=== PATIENT | male | born 1965 | race Caucasian/White ===

== ENCOUNTER 2017-02-02 12:11 | Emergency (ER) | payer MEDICAID ==
[2017-02-02] MEDS ORDERED: MVI, Adult with Vitamin K 10 ML, Thiamine 100 MG, Folic Acid 1 MG, Magnesium Sulfate 3 ... IV SCH ×5 (13:00)
[2017-02-02 16:03] VITALS: BP 144/63
--- NOTE | 2017-02-02 16:48 | EDM.PDOC ---
ED HPI LOWER BACK PAIN/INJURY - General Chief Complaint: Back Pain or Injury Stated Complaint: BACK PAIN Time Seen by Provider: 02/02/17 12:38 Source: Reports: Patient History Limitations: Reports: No limitations, Intoxication - History of Present Illness INITIAL COMMENTS - FREE TEXT/NARRATIVE: History of present illness: [Patient is an alcoholic and fell asleep on a cement floor last night with the intention of sleeping on a cement floor because of some underlying mid back pain that he was having. Because of his alcohol he did not shift his weight and so comes in now with a large subcutaneous hematoma midline of his thoracic spine complaining of pain. He smells strongly of alcohol] Review of systems: As per history of present illness and below otherwise all systems reviewed and negative. Past medical history: As per history of present illness and as reviewed below otherwise noncontributory. Surgical history: As per history of present illness and as reviewed below otherwise noncontributory. Social history: History of alcohol abuse and use Family history: As per history of present illness and as reviewed below otherwise noncontributory. Physical exam: HEENT: Atraumatic, normocephalic, pupils reactive, negative for conjunctival pallor or scleral icterus, mucous membranes moist, throat clear, neck supple, nontender, trachea midline. Smells strongly of alcohol but is able to carry on meaningful conversation Lungs: Clear to auscultation, breath sounds equal bilaterally, chest nontender. Heart: S1S2, regular, negative for clicks, rubs, or JVD. Abdomen: Soft, nondistended, nontender. Negative for masses or hepatosplenomegaly. Negative for costovertebral tenderness. Pelvis: Stable nontender. Genitourinary: Deferred. Rectal: Deferred. Back: He has a simultaneous hematoma midline of the thoracic spine that is about 10 cm x 5 cm. It is tender to touch Extremities: Atraumatic, negative for cords or calf pain. Neurovascular unremarkable. Neuro: Awake, alert, oriented. Cranial nerves II through XII unremarkable. Cerebellum unremarkable. Motor and sensory unremarkable throughout. He was slightly tremulous Diagnostics: [X-rays of the thoracic spine reveal no acute fractures are appreciating. CBC metabolic panel and UA were obtained and a minor abnormalities were seen that were consistent with a diagnosis of chronic alcoholism. ] Therapeutics: [He received a banana bag] Impression: [Subcutaneous hematoma of the thoracic spine Acute intoxication and chronic alcoholic] Plan: [There is a bed available at [facility] and he will be sent there for help] Definitive disposition and diagnosis as appropriate pending reevaluation and review of above. - Related Data Allergies/ADRs: Allergies Allergy/AdvReac Type Severity Reaction Status Date / Time No Known Allergies Allergy Verified 02/16/14 15:33 Home Meds: Home Meds Arginine [l-Arginine] 500 mg PO TID 02/16/14 [History] Melatonin 1 tab PO BEDTIME PRN 02/02/17 [History] Metoprolol Succinate 1 tab PO DAILY 02/02/17 [History] Past Medical History Cardiovascular History: Reports: Hypertension Musculoskeletal History: Reports: Fracture Social & Family History - Tobacco Use Smoking Status *Q: Current Some Day Smoker Years of Tobacco use: 30 Packs/Tins Daily: 0.5 - Caffeine Use Caffeine Use: Reports: None - Alcohol Use Days Per Week of Alcohol Use: 7 Number of Drinks Per Day: 10 Total Drinks Per Week: 70 Date of Last Drink: 02/02/17 Time of Last Drink: 10:00 - Recreational Drug Use Recreational Drug Use: Yes Recreational Drug Type: Reports: Marijuana/Hashish Recreational Drug Use Frequency: Not Used In Over 6 Months ED ROS GENERAL - Review of Systems Review Of Systems: ROS reveals no pertinent complaints other than HPI. ED EXAM,LOWER BACK PAIN/INJURY - Physical Exam Exam: See Below Course - Vital Signs Last Recorded V/S: Last Vital Signs Temp 36.6 C 02/02/17 15:08 Pulse 69 02/02/17 16:02 Resp 20 02/02/17 16:02 BP 144/63 H 02/02/17 16:02 Pulse Ox 94 L 02/02/17 16:02 - Orders/Labs/Meds Orders: Active Orders 24 hr Category Date Time Status Thoracic Spine 2V [CR] Stat Exams 02/02/17 12:47 Taken MVI, Adult with Vitamin K [Infuvite Adult] 10 ml Med 02/02/17 13:00 Active Thiamine [Vitamin B-1] 100 mg Folic Acid 1 mg Magnesium Sulfate [Magnesium Sulfate 50%] 3 gm Sodium Chloride 0.9% [Normal Saline] 1,000 ml IV ASDIRECTED Medication Orders Multivitamins/Minerals 10 ml/Thiamine HCl 100 mg/ Folic Acid 1 mg/ Magnesium Sulfate 3 gm/ Sodium Chloride 1,017.2 mls @ 999 mls/hr IV ASDIRECTED JENSEN Last Admin: 02/02/17 13:38 Dose: 999 mls/hr Labs: Laboratory Tests 02/02/17 02/02/17 02/02/17 Range/Units 12:48 12:48 12:49 WBC 4.9 (4.5-11.0) K/uL RBC 3.93 L (4.30-5.90) M/uL Hgb 13.4 (12.0-15.0) g/dL Hct 39.0 L (40.0-54.0) % MCV 99 H (80-98) fL MCH 34 H (27-31) pg MCHC 34 (32-36) % Plt Count 105 L (150-400) K/uL Neut % (Auto) 63 (36-66) % Lymph % (Auto) 24 (24-44) % Denali % (Auto) 12 H (2-6) % Eos % (Auto) 0 L (2-4) % Baso % (Auto) 1 (0-1) % Sodium 141 (140-148) mmol/L Potassium 3.6 (3.6-5.2) mmol/L Chloride 98 L (100-108) mmol/L Carbon Dioxide 30 (21-32) mmol/L Anion Gap 16.6 H (5.0-14.0) mmol/L BUN 8 (7-18) mg/dL Creatinine 0.7 L (0.8-1.3) mg/dL Est Cr Clr Drug Dosing 113.93 mL/min Estimated GFR (MDRD) > 60 (>60) Glucose 129 H (74-106) mg/dL Calcium 8.4 L (8.5-10.1) mg/dL Total Bilirubin 1.3 H (0.2-1.0) mg/dL AST 247 H (15-37) U/L ALT 90 H (12-78) U/L Alkaline Phosphatase 89 (46-116) U/L Creatine Kinase 234 (39-308) U/L Total Protein 8.5 H (6.4-8.2) g/dL Albumin 3.9 (3.4-5.0) g/dL Globulin 4.6 H (2.3-3.5) g/dL Albumin/Globulin Ratio 0.9 L (1.2-2.2) Ethyl Alcohol 400 mg/dL 02/02/17 Range/Units 15:51 WBC (4.5-11.0) K/uL RBC (4.30-5.90) M/uL Hgb (12.0-15.0) g/dL Hct (40.0-54.0) % MCV (80-98) fL MCH (27-31) pg MCHC (32-36) % Plt Count (150-400) K/uL Neut % (Auto) (36-66) % Lymph % (Auto) (24-44) % Denali % (Auto) (2-6) % Eos % (Auto) (2-4) % Baso % (Auto) (0-1) % Sodium (140-148) mmol/L Potassium (3.6-5.2) mmol/L Chloride (100-108) mmol/L Carbon Dioxide (21-32) mmol/L Anion Gap (5.0-14.0) mmol/L BUN (7-18) mg/dL Creatinine (0.8-1.3) mg/dL Est Cr Clr Drug Dosing mL/min Estimated GFR (MDRD) (>60) Glucose (74-106) mg/dL Calcium (8.5-10.1) mg/dL Total Bilirubin (0.2-1.0) mg/dL AST (15-37) U/L ALT (12-78) U/L Alkaline Phosphatase (46-116) U/L Creatine Kinase (39-308) U/L Total Protein (6.4-8.2) g/dL Albumin (3.4-5.0) g/dL Globulin (2.3-3.5) g/dL Albumin/Globulin Ratio (1.2-2.2) Ethyl Alcohol 341 mg/dL Meds: Medications Generic Name Dose Route Start Last Admin Trade Name Freq PRN Reason Stop Dose Admin Multivitamins/Minerals 10 ml/ 1,017.2 mls @ 999 mls/hr 02/02/17 13:00 13:38 Thiamine HCl 100 mg/ Folic IV 999 mls/hr Acid 1 mg/ Magnesium Sulfate 3 ASDIRECTED JENSEN Administration gm/ Sodium Chloride Departure - Departure Time of Disposition: 16:47 (I was unable to find a diagnosis of a subcutaneous hematoma of the mid thoracic back but that is what he actually has) Disposition: Home, Self-Care 01 Condition: fair Clinical Impression: Hematoma, Alcohol abuse Traumatic hematoma of lower back Qualifiers: Encounter type: initial encounter Qualified Code(s): S30.0XXA - Contusion of lower back and pelvis, initial encounter Forms: ED Department Discharge Additional Instructions: Please try to obtain an operative candidate from a manner and stop drinking and try to figure out better ways to cope - My Orders Last 24 Hours: My Active Orders 02/02/17 12:47 Thoracic Spine 2V [CR] Stat 02/02/17 13:00 MVI, Adult with Vitamin K [Infuvite Adult] 10 ml Thiamine [Vitamin B-1] 100 mg Folic Acid 1 mg Magnesium Sulfate [Magnesium Sulfate 50%] 3 gm Sodium Chloride 0.9% [Normal Saline] 1,000 ml IV ASDIRECTED - Assessment/Plan Last 24 Hours: My Active Orders 02/02/17 12:47 Thoracic Spine 2V [CR] Stat 02/02/17 13:00 MVI, Adult with Vitamin K [Infuvite Adult] 10 ml Thiamine [Vitamin B-1] 100 mg Folic Acid 1 mg Magnesium Sulfate [Magnesium Sulfate 50%] 3 gm Sodium Chloride 0.9% [Normal Saline] 1,000 ml IV ASDIRECTED
--- NOTE | 2017-02-04 08:51 | CR ---
Thoracic Spine 2V INDICATION: mid back pain FINDINGS: Mild diffuse disc desiccation and minimal endplate hypertrophic changes. No acute fracture or cortical destruction.
== END 2017-02-02 17:10 | disposition home or self-care (01) ==
LOC: JP.ED 12:11
DX: S30.0XXA Contusion of lower back and pelvis, initial encounter (principal); F10.120 Alcohol abuse with intoxication, uncomplicated; I10 Essential (primary) hypertension; F17.210 Nicotine dependence, cigarettes, uncomplicated; Z79.899 Other long term (current) drug therapy; W19.XXXA Unspecified fall, initial encounter
CPT/HCPCS: 36415; 72070; 80053; 82550; 85025; 96365; 96366; 99284; G0480; J3411; J3475; J7040; J3490

== ENCOUNTER 2017-02-03 09:02 | Inpatient (IN) | payer MEDICAID ==
[2017-02-03] MEDS ORDERED: LORazepam 1 MG Tab PO ONE (11:12)
[2017-02-03] MEDS ORDERED: Sodium Chloride 0.9% 1,000 ML IV SCH (13:30)
--- NOTE | 2017-02-03 13:32 | EDM.PDOC ---
ED HPI ALTERED MENTAL STATUS - General Chief Complaint: Drug or Alcohol Abuse Stated Complaint: [facility] Time Seen by Provider: 02/03/17 10:36 Source: Reports: Patient History Limitations: Reports: No limitations - History of Present Illness INITIAL COMMENTS - FREE TEXT/NARRATIVE: History of present illness: [This is a gentleman I saw yesterday and sent supine manner. They called me this morning and stated that they are unable to take care of him and as he requires one-on-one care and they're unable to provide one-on-one care. He is 30 mg of Valium and 5 mg of Ativan since being sent over there to try to control his withdrawal symptoms from alcohol. He is very unsteady on his feet and they don't have staff to manage him.] Review of systems: As per history of present illness and below otherwise all systems reviewed and negative. Past medical history: As per history of present illness and as reviewed below otherwise noncontributory. Surgical history: As per history of present illness and as reviewed below otherwise noncontributory. Social history: patient has history of alcohol Family history: As per history of present illness and as reviewed below otherwise noncontributory. Physical exam: HEENT: Atraumatic, normocephalic, pupils reactive, negative for conjunctival pallor or scleral icterus, mucous membranes moist, throat clear, neck supple, nontender, trachea midline. Lungs: Clear to auscultation, breath sounds equal bilaterally, chest nontender. Heart: S1S2, regular, negative for clicks, rubs, or JVD. Abdomen: Soft, nondistended, nontender. Negative for masses or hepatosplenomegaly. Negative for costovertebral tenderness. Pelvis: Stable nontender. Genitourinary: Deferred. Rectal: Deferred. BACK: There is subcutaneous hematoma that was seen on his back yesterday is now softened up and he just has a big bruise present the middle of his back Extremities: Atraumatic, negative for cords or calf pain. Neurovascular unremarkable. Neuro: Awake, alert, oriented. Cranial nerves II through XII unremarkable. He is quite tremulous and requires assistance of 2 people to get him out of bed and put him on a commode or to ambulate him. Diagnostics: [CBC and complete metabolic panel showed multiple small abnormalities consistent with his alcoholism see that report for details] Therapeutics: [] Impression: [Acute alcohol withdrawal] Plan: [Dr. Bryant is here to admit him] Definitive disposition and diagnosis as appropriate pending reevaluation and review of above. - Related Data Allergies/ADRs: Allergies No Known Allergies Allergy (Verified 02/03/17 09:27) Home Meds: Home Meds Arginine [l-Arginine] 500 mg PO TID 02/16/14 [History] Melatonin 1 tab PO BEDTIME PRN 02/02/17 [History] Metoprolol Succinate 1 tab PO DAILY 02/02/17 [History] Past Medical History Cardiovascular History: Reports: Hypertension Musculoskeletal History: Reports: Fracture Psychiatric History: Reports: Addiction - Past Surgical History Musculoskeletal Surgical History: Reports: Other (see below) Other Musculoskeletal Surgeries/Procedures:: knee fracture surgery. Social & Family History - Tobacco Use Smoking Status *Q: Current Some Day Smoker Years of Tobacco use: 30 Packs/Tins Daily: 0.5 - Caffeine Use Caffeine Use: Reports: None - Alcohol Use Days Per Week of Alcohol Use: 7 Number of Drinks Per Day: 10 Total Drinks Per Week: 70 - Recreational Drug Use Recreational Drug Use: Yes Recreational Drug Type: Reports: Marijuana/Hashish Recreational Drug Use Frequency: Not Used In Over 6 Months ED ROS GENERAL - Review of Systems Review Of Systems: ROS reveals no pertinent complaints other than HPI. - Physical Exam Exam: See Below Course - Vital Signs Last Recorded V/S: Last Vital Signs Temp 37.4 C 02/03/17 09:19 Pulse 76 02/03/17 13:20 Resp 16 02/03/17 13:20 BP 142/83 H 02/03/17 13:20 Pulse Ox 93 L 02/03/17 13:20 - Orders/Labs/Meds Labs: Laboratory Tests 02/03/17 02/03/17 02/03/17 Range/Units 10:46 10:46 10:46 WBC 3.9 L (4.5-11.0) K/uL RBC 3.17 L (4.30-5.90) M/uL Hgb 10.9 L D (12.0-15.0) g/dL Hct 32.1 L (40.0-54.0) % MCV 101 H (80-98) fL MCH 34 H (27-31) pg MCHC 34 (32-36) % Plt Count 71 L (150-400) K/uL Neut % (Auto) 64 (36-66) % Lymph % (Auto) 14 L (24-44) % Mcleod % (Auto) 21 H (2-6) % Eos % (Auto) 1 L (2-4) % Baso % (Auto) 1 (0-1) % Sodium 139 L (140-148) mmol/L Potassium 3.7 (3.6-5.2) mmol/L Chloride 98 L (100-108) mmol/L Carbon Dioxide 30 (21-32) mmol/L Anion Gap 14.7 H (5.0-14.0) mmol/L BUN 10 (7-18) mg/dL Creatinine 0.6 L (0.8-1.3) mg/dL Est Cr Clr Drug Dosing 133.59 mL/min Estimated GFR (MDRD) > 60 (>60) Glucose 107 H (74-106) mg/dL Lactic Acid 1.1 (0.4-2.0) mmol/L Calcium 8.4 L (8.5-10.1) mg/dL Total Bilirubin 1.9 H (0.2-1.0) mg/dL AST 171 H (15-37) U/L ALT 68 (12-78) U/L Alkaline Phosphatase 71 (46-116) U/L Total Protein 7.5 (6.4-8.2) g/dL Albumin 3.7 (3.4-5.0) g/dL Globulin 3.8 H (2.3-3.5) g/dL Albumin/Globulin Ratio 1.0 L (1.2-2.2) Ethyl Alcohol mg/dL 02/03/17 Range/Units 10:46 WBC (4.5-11.0) K/uL RBC (4.30-5.90) M/uL Hgb (12.0-15.0) g/dL Hct (40.0-54.0) % MCV (80-98) fL MCH (27-31) pg MCHC (32-36) % Plt Count (150-400) K/uL Neut % (Auto) (36-66) % Lymph % (Auto) (24-44) % Mcleod % (Auto) (2-6) % Eos % (Auto) (2-4) % Baso % (Auto) (0-1) % Sodium (140-148) mmol/L Potassium (3.6-5.2) mmol/L Chloride (100-108) mmol/L Carbon Dioxide (21-32) mmol/L Anion Gap (5.0-14.0) mmol/L BUN (7-18) mg/dL Creatinine (0.8-1.3) mg/dL Est Cr Clr Drug Dosing mL/min Estimated GFR (MDRD) (>60) Glucose (74-106) mg/dL Lactic Acid (0.4-2.0) mmol/L Calcium (8.5-10.1) mg/dL Total Bilirubin (0.2-1.0) mg/dL AST (15-37) U/L ALT (12-78) U/L Alkaline Phosphatase (46-116) U/L Total Protein (6.4-8.2) g/dL Albumin (3.4-5.0) g/dL Globulin (2.3-3.5) g/dL Albumin/Globulin Ratio (1.2-2.2) Ethyl Alcohol < 3 mg/dL Meds: Medications Discontinued Medications Generic Name Dose Route Start Last Admin Trade Name Freq PRN Reason Stop Dose Admin Lorazepam 1 mg 02/03/17 11:12 02/03/17 11:17 Ativan PO 02/03/17 11:13 1 mg ONETIME ONE Administration Departure - Departure Time of Disposition: 13:31 Disposition: Admitted As Inpatient 68 Condition: fair Clinical Impression: Alcohol withdrawal syndrome Qualifiers: Complication of substance-induced condition: with unspecified complication Qualified Code(s): F10.239 - Alcohol dependence with withdrawal, unspecified Forms: ED Department Discharge
--- NOTE | 2017-02-03 13:51 | PCM.HP ---
H&P History of Present Illness - General Date of Service: 02/03/17 Admit Problem/Dx: Admission Diagnosis/Problem Admission Diagnosis/Problem Alcohol withdrawal delirium He has been drinking a considerable amount of alcohol and was laying on a cement floor intoxicated and had a large hematoma on his back when he came in today before admission to [facility]. He comes in now and the lesion is smaller but still present. While at [facility] we were unable to sedate him enough and he was unable to ambulate and was unsafe to remain at the [facility] facility as his delirium tremors were progressively getting worse. Source of Information: Patient, EMS History Limitations: Reports: Altered mental status - History of Present Illness Associated Symptoms: Reports: weakness Back Pain Score (Numeric/FACES): 6 - Related Data Allergies/Adverse Reactions: Allergies Allergy/AdvReac Type Severity Reaction Status Date / Time No Known Allergies Allergy Verified 02/03/17 09:27 Home Medications: Home Meds Arginine [l-Arginine] 500 mg PO TID 02/16/14 [History] Melatonin 1 tab PO BEDTIME PRN 02/02/17 [History] Metoprolol Succinate 1 tab PO DAILY 02/02/17 [History] Past Medical History Cardiovascular History: Reports: Hypertension Musculoskeletal History: Reports: Fracture Psychiatric History: Reports: Addiction - Past Surgical History Musculoskeletal Surgical History: Reports: Other (see below) Other Musculoskeletal Surgeries/Procedures:: knee fracture surgery. Social & Family History - Tobacco Use Smoking Status *Q: Current Some Day Smoker Years of Tobacco use: 30 Packs/Tins Daily: 0.5 - Caffeine Use Caffeine Use: Reports: None - Alcohol Use Days Per Week of Alcohol Use: 7 Number of Drinks Per Day: 10 Total Drinks Per Week: 70 - Recreational Drug Use Recreational Drug Use: Yes Recreational Drug Type: Reports: Marijuana/Hashish Recreational Drug Use Frequency: Not Used In Over 6 Months H&P Review of Systems - Review of Systems: Review Of Systems: See Below General: Reports: weakness, decreased appetite Pulmonary: Reports: No Symptoms Cardiovascular: Reports: no symptoms Gastrointestinal: Reports: Constipation, Diarrhea Genitourinary: Reports: no symptoms Musculoskeletal: Reports: back pain Skin: Reports: rash Psychiatric: Reports: anxiety Neurological: Reports: Trouble Speaking, Difficulty Walking, Weakness, Gait Disturbance Hematologic/Lymphatic: Reports: anemia, easy bruising Immunologic: Reports: no symptoms Exam - Exam Exam: See Below - Vital Signs Vital Signs: Last Vital Signs Temp 99.3 F 02/03/17 09:19 Pulse 76 02/03/17 13:20 Resp 16 02/03/17 13:20 BP 142/83 H 02/03/17 13:20 Pulse Ox 93 L 02/03/17 13:20 Weight: 184 lb 15.485 oz - Exam General: oriented, cooperative, mild distress HEENT: PERRLA, Hearing intact, Mucosa moist & pink, Nares patent, Normal nasal septum, Posterior pharynx clear, Conjunctiva clear, EOMI, EACs clear, TMs clear Neck: supple, trachea midline, 2 Lungs: Clear to auscultation, Normal respiratory effort Cardiovascular: regular rate, regular rhythm Abdomen: distention Back Exam: other (Rash noted on the mid back area from apparently planning on cement.) Peripheral Pulses: 1+: radial (L), radial (R) Skin: warm, dry Neurological: cranial nerves intact, reflexes equal bilateral Neuro Extensive - Mental Status: oriented x3 Neuro Extensive - Motor, Sensory, Reflexes: CN II-XII intact, motor/sensory deficits, tremor Psychiatric: normal mood - Patient Data Lab Results last 24 hrs: Laboratory Results - last 24 hr 02/03/17 02/03/17 02/03/17 Range/Units 10:46 10:46 10:46 WBC 3.9 L (4.5-11.0) K/uL RBC 3.17 L (4.30-5.90) M/uL Hgb 10.9 L D (12.0-15.0) g/dL Hct 32.1 L (40.0-54.0) % MCV 101 H (80-98) fL MCH 34 H (27-31) pg MCHC 34 (32-36) % Plt Count 71 L (150-400) K/uL Neut % (Auto) 64 (36-66) % Lymph % (Auto) 14 L (24-44) % Andrew % (Auto) 21 H (2-6) % Eos % (Auto) 1 L (2-4) % Baso % (Auto) 1 (0-1) % Sodium 139 L (140-148) mmol/L Potassium 3.7 (3.6-5.2) mmol/L Chloride 98 L (100-108) mmol/L Carbon Dioxide 30 (21-32) mmol/L Anion Gap 14.7 H (5.0-14.0) mmol/L BUN 10 (7-18) mg/dL Creatinine 0.6 L (0.8-1.3) mg/dL Est Cr Clr Drug Dosing 133.59 mL/min Estimated GFR (MDRD) > 60 (>60) Glucose 107 H (74-106) mg/dL Lactic Acid 1.1 (0.4-2.0) mmol/L Calcium 8.4 L (8.5-10.1) mg/dL Total Bilirubin 1.9 H (0.2-1.0) mg/dL AST 171 H (15-37) U/L ALT 68 (12-78) U/L Alkaline Phosphatase 71 (46-116) U/L Total Protein 7.5 (6.4-8.2) g/dL Albumin 3.7 (3.4-5.0) g/dL Globulin 3.8 H (2.3-3.5) g/dL Albumin/Globulin Ratio 1.0 L (1.2-2.2) Ethyl Alcohol mg/dL 02/03/17 Range/Units 10:46 WBC (4.5-11.0) K/uL RBC (4.30-5.90) M/uL Hgb (12.0-15.0) g/dL Hct (40.0-54.0) % MCV (80-98) fL MCH (27-31) pg MCHC (32-36) % Plt Count (150-400) K/uL Neut % (Auto) (36-66) % Lymph % (Auto) (24-44) % Andrew % (Auto) (2-6) % Eos % (Auto) (2-4) % Baso % (Auto) (0-1) % Sodium (140-148) mmol/L Potassium (3.6-5.2) mmol/L Chloride (100-108) mmol/L Carbon Dioxide (21-32) mmol/L Anion Gap (5.0-14.0) mmol/L BUN (7-18) mg/dL Creatinine (0.8-1.3) mg/dL Est Cr Clr Drug Dosing mL/min Estimated GFR (MDRD) (>60) Glucose (74-106) mg/dL Lactic Acid (0.4-2.0) mmol/L Calcium (8.5-10.1) mg/dL Total Bilirubin (0.2-1.0) mg/dL AST (15-37) U/L ALT (12-78) U/L Alkaline Phosphatase (46-116) U/L Total Protein (6.4-8.2) g/dL Albumin (3.4-5.0) g/dL Globulin (2.3-3.5) g/dL Albumin/Globulin Ratio (1.2-2.2) Ethyl Alcohol < 3 mg/dL Result Diagrams: 02/04/17 05:11 02/04/17 04:47 *Q Meaningful Use (ADM) - VTE *Q VTE Criteria *Q: - Stroke *Q Stroke Criteria *Q: - AMI *Q AMI Criteria *Q: Problem List Initiated/Reviewed/Updated: Yes Orders Last 24hrs: Active Orders 24 hr Category Date Time Status Patient Status [ADT] Routine ADT 02/03/17 13:29 Ordered Bedrest Bathroom Privileges [RC] ASDIRECTED Care 02/03/17 13:29 Ordered Height and Weight [RC] DAILY Care 02/03/17 13:29 Ordered Intake and Output [RC] QSHIFT Care 02/03/17 13:34 Ordered May Shower [RC] ASDIRECTED Care 02/03/17 13:29 Ordered Oxygen Therapy [RC] PRN Care 02/03/17 13:29 Ordered Up With Assistance [RC] ASDIRECTED Care 02/03/17 13:29 Ordered Up to Chair [RC] QID Care 02/03/17 13:29 Ordered VTE/DVT Education [RC] Per Unit Routine Care 02/03/17 13:29 Ordered Vital Signs [RC] Q4H Care 02/03/17 13:29 Ordered Regular Diet [DIET] Diet 02/03/17 Dinner Ordered BASIC METABOLIC PANEL,BMP [CHEM] Routine Lab 02/04/17 05:11 Ordered CBC W/O DIFF,HEMOGRAM [HEME] Routine Lab 02/04/17 05:11 Ordered MAGNESIUM [CHEM] AM Lab 02/04/17 05:11 Ordered Metoprolol Succinate [Metoprolol Succinate] Med 02/04/17 09:00 Ordered 1 tab PO DAILY Sodium Chloride 0.9% @ 125 MLS/HR (1000ml) Med 02/03/17 13:30 Ordered Sodium Chloride 0.9% [Normal Saline] 1,000 ml IV ASDIRECTED Thiamine [Vitamin B-1] Med 02/03/17 21:00 Ordered 100 mg PO BID Resuscitation Status Routine Resus Stat 02/03/17 13:29 Ordered Medication Orders Sodium Chloride (Normal Saline) 1,000 mls @ 125 mls/hr IV ASDIRECTED JENSEN Non-Formulary Medication (Metoprolol Succinate [Metoprolol Succinate]) 1 tab PO DAILY [facility] Thiamine HCl (Vitamin B-1) 100 mg PO BID [facility] Assessment/Plan Comment:: Assessment/plan: #1. Alcoholism with delirium tremors. He's been consuming a large amount of alcohol and will need close observation in the ICU #2. Hypertension..Will need to monitor his blood pressure closely as he give medications and will monitor his blood work closely. #3. Obesity
[2017-02-03] MEDS ORDERED: Diazepam 5 MG Tab PO PRN (14:10)
[2017-02-03] MEDS: Dextrose 5%-0.9% NaCl 1,000 ML IV SCH ×2 (15:15→22:35)
[2017-02-03] MEDS: Thiamine 100 MG Tab PO SCH ×2 (16:21→21:04)
[2017-02-03] MEDS: Acetaminophen 325 MG Tab PO PRN (19:49)
[2017-02-03] MEDS ORDERED: LORazepam 2 MG/ML MDV ONE (23:49)
[2017-02-03] MEDS: LORazepam 2 MG/ML MDV IVPUSH PRN (23:50)
[2017-02-04] MEDS: LORazepam 2 MG/ML MDV IVPUSH PRN ×16 (00:18→22:28)
[2017-02-04] MEDS: Haloperidol Lactate 5 MG/ML SDV IVPUSH PRN ×6 (02:44→21:11)
[2017-02-04] MEDS: Dextrose 5%-0.9% NaCl 1,000 ML IV SCH ×2 (07:05→16:59)
[2017-02-04] MEDS: Thiamine 100 MG Tab PO SCH ×2 (10:21→21:09)
[2017-02-04] MEDS: Folic Acid 1 MG Tab PO SCH (10:21)
[2017-02-04] MEDS: Metoprolol Succinate 50 MG Tab.ER PO SCH (10:21)
[2017-02-04] MEDS: Multivitamins with Iron/Calcium/Folic Acid/Minerals Tab PO SCH (10:21)
[2017-02-04] MEDS: Potassium Chloride 20 MEQ, Lidocaine 1% 2 ML in Sodium Chloride 0.9% 100 ML IV SCH ×2 (10:22→13:37)
[2017-02-04] MEDS: Magnesium Sulfate/Water 2 GM in Premix Bag 1 BAG IV SCH ×3 (10:33→22:28)
--- NOTE | 2017-02-04 14:27 | PCM.PN ---
- General Info Date of Service: 02/04/17 Functional Status: Reports: pain controlled - Review of Systems General: Reports: Weakness, Fatigue HEENT: Reports: no symptoms Pulmonary: Reports: no symptoms Cardiovascular: Reports: No Symptoms Gastrointestinal: Reports: No symptoms Genitourinary: Reports: no symptoms Musculoskeletal: Reports: no symptoms Skin: Reports: no symptoms Neurological: Reports: No Symptoms Psychiatric: Reports: hallucinations - Patient Data Vitals - most recent: Last Vital Signs Temp 99 F 02/04/17 13:00 Pulse 93 02/04/17 12:00 Resp 24 H 02/04/17 13:00 BP 129/99 H 02/04/17 13:00 Pulse Ox 98 02/04/17 13:00 Weight - most recent: 175 lb 11.335 oz I&O - last 24 hours: Intake & Output 02/03/17 02/04/17 02/04/17 22:59 06:59 14:59 Intake Total 847 1342 112 Output Total 600 300 Balance 247 1342 -188 Lab Results last 24 hrs: Laboratory Results - last 24 hr 02/04/17 02/04/17 Range/Units 04:47 05:11 WBC 4.8 (4.5-11.0) K/uL RBC 3.10 L (4.30-5.90) M/uL Hgb 10.6 L (12.0-15.0) g/dL Hct 31.4 L (40.0-54.0) % MCV 101 H (80-98) fL MCH 34 H (27-31) pg MCHC 34 (32-36) % Plt Count 75 L (150-400) K/uL Sodium 138 L (140-148) mmol/L Potassium 3.2 L (3.6-5.2) mmol/L Chloride 99 L (100-108) mmol/L Carbon Dioxide 27 (21-32) mmol/L Anion Gap 15.2 H (5.0-14.0) mmol/L BUN 5 L (7-18) mg/dL Creatinine 0.6 L (0.8-1.3) mg/dL Est Cr Clr Drug Dosing 142.50 mL/min Estimated GFR (MDRD) > 60 (>60) Glucose 145 H (74-106) mg/dL Calcium 8.3 L (8.5-10.1) mg/dL Magnesium 1.3 L (1.8-2.4) mg/dL Med Orders - Current: Current Medications Acetaminophen (Tylenol) 650 mg PO Q4H PRN PRN Reason: Pain Last Admin: 02/03/17 19:49 Dose: 650 mg Diazepam (Valium) 0 mg IVPUSH ASDIRECTED PRN; Protocol PRN Reason: ETOH WITHDRAWAL Last Admin: 02/03/17 23:32 Dose: 20 mg Diazepam (Valium.) 0 mg PO ASDIRECTED PRN; Protocol PRN Reason: ETOH WITHDRAWAL Last Admin: 02/03/17 16:57 Dose: 10 mg Folic Acid (Folic Acid) 1 mg PO DAILY [facility] Last Admin: 02/04/17 10:21 Dose: 1 mg Haloperidol Lactate (Haldol) 5 mg IVPUSH Q1H PRN PRN Reason: Agitation Last Admin: 02/04/17 13:45 Dose: 5 mg Dextrose/Sodium Chloride (Dextrose 5%-Normal Saline) 1,000 mls @ 125 mls/hr IV ASDIRECTED [facility] Last Admin: 02/04/17 07:05 Dose: 125 mls/hr Magnesium Sulfate 2 gm/ Premix 50 mls @ 25 mls/hr IV Q6H [facility] Stop: 02/04/17 23:59 Last Admin: 02/04/17 10:33 Dose: 25 mls/hr Lorazepam (Ativan) 0.5 - 4 mg IVPUSH Q30M PRN; Protocol PRN Reason: Anxiety Last Admin: 02/04/17 13:36 Dose: 2 mg Metoprolol Succinate (Toprol Xl) 200 mg PO DAILY [facility] Last Admin: 02/04/17 10:21 Dose: 200 mg Multivitamins/Minerals (Thera M Plus) 1 tab PO DAILY [facility] Last Admin: 02/04/17 10:21 Dose: 1 tab Thiamine HCl (Vitamin B-1) 100 mg PO BID [facility] Stop: 02/09/17 21:01 Last Admin: 02/04/17 10:21 Dose: 100 mg Discontinued Medications Sodium Chloride (Normal Saline) 1,000 mls @ 125 mls/hr IV ASDIRECTED [facility] Potassium Chloride 20 meq/Lidocaine HCl 2 ml/ Sodium Chloride 112 mls @ 56 mls/ hr IV Q2H [facility] Stop: 02/04/17 13:59 Last Admin: 02/04/17 13:37 Dose: 56 mls/hr Lorazepam (Ativan) 1 mg PO ONETIME ONE Stop: 02/03/17 11:13 Last Admin: 02/03/17 11:17 Dose: 1 mg Lorazepam (Ativan) Confirm Administered Dose 4 mg .ROUTE .STK-MED ONE Stop: 02/03/17 23:50 Last Admin: 02/04/17 00:08 Dose: Not Given - Exam General: alert, oriented HEENT: Pupils equal, Pupils reactive, EOMI, Mucous membr. moist/pink Lungs: Clear to auscultation, Normal respiratory effort Cardiovascular: Regular Rate, Regular Rhythm Abdomen: bowel sounds present, soft, no tenderness, no distension Back Exam: normal inspection, full range of motion Extremities: no edema Peripheral Pulses: 1+: radial (L), radial (R) Psy/Mental Status: withdrawal symptoms - Problem List Review Problem List Initiated/Reviewed/Updated: Yes - My Orders Last 24 Hours: My Active Orders 02/03/17 19:41 Acetaminophen [Tylenol] 650 mg PO Q4H PRN 02/03/17 23:56 LORazepam [Ativan] 0.5 - 4 mg IVPUSH Q30M PRN 02/04/17 02:20 Haloperidol Lactate [Haldol] 5 mg IVPUSH Q1H PRN 02/04/17 10:00 Magnesium Sulfate/Water [Magnesium Sulfate 2 GM in Water 50 ML] 2 gm Premix Bag 1 bag IV Q6H 02/05/17 05:00 CBC W/O DIFF,HEMOGRAM [HEME] Routine COMPREHENSIVE METABOLIC PN,CMP [CHEM] Routine LIPASE [CHEM] Routine - Plan Plan:: Assessment/plan: #1. Alcoholism with delirium tremors. He is having difficult time coming off alcohol and had to use Haldol as well as Valium and Ativan in the past as well. #2. Hypertension. His blood pressure is stable control at present time. #3. Obesity he is in the ICU and unconscious as he is heavily sedated in order to get him off the alcohol. Certainly he is obese and needs to change his diet and exercise particularly stoping his alcohol intake.
--- NOTE | 2017-02-04 18:24 | PCM.PN ---
- General Info Date of Service: 02/05/17 Admission Dx/Problem (Free Text): He continues to have significant withdrawal delirium tremors and unable to ambulate. - Review of Systems General: Reports: Weakness, Fatigue, Appetite HEENT: Reports: visual changes Pulmonary: Reports: no symptoms Cardiovascular: Reports: No Symptoms Gastrointestinal: Reports: Difficulty swallowing, Nausea Genitourinary: Reports: no symptoms Musculoskeletal: Reports: no symptoms Skin: Reports: diaphoresis Psychiatric: Reports: confusion, agitation - Patient Data Vitals - most recent: Last Vital Signs Temp 99.6 F 02/04/17 18:00 Pulse 108 H 02/04/17 16:00 Resp 21 H 02/04/17 18:00 BP 146/102 H 02/04/17 18:00 Pulse Ox 99 02/04/17 18:00 Weight - most recent: 175 lb 11.335 oz I&O - last 24 hours: Intake & Output 02/04/17 02/04/17 02/04/17 06:59 14:59 22:59 Intake Total 1342 112 Output Total 300 Balance 1342 -188 Lab Results last 24 hrs: Laboratory Results - last 24 hr 02/04/17 02/04/17 Range/Units 04:47 05:11 WBC 4.8 (4.5-11.0) K/uL RBC 3.10 L (4.30-5.90) M/uL Hgb 10.6 L (12.0-15.0) g/dL Hct 31.4 L (40.0-54.0) % MCV 101 H (80-98) fL MCH 34 H (27-31) pg MCHC 34 (32-36) % Plt Count 75 L (150-400) K/uL Sodium 138 L (140-148) mmol/L Potassium 3.2 L (3.6-5.2) mmol/L Chloride 99 L (100-108) mmol/L Carbon Dioxide 27 (21-32) mmol/L Anion Gap 15.2 H (5.0-14.0) mmol/L BUN 5 L (7-18) mg/dL Creatinine 0.6 L (0.8-1.3) mg/dL Est Cr Clr Drug Dosing 142.50 mL/min Estimated GFR (MDRD) > 60 (>60) Glucose 145 H (74-106) mg/dL Calcium 8.3 L (8.5-10.1) mg/dL Magnesium 1.3 L (1.8-2.4) mg/dL Med Orders - Current: Current Medications Acetaminophen (Tylenol) 650 mg PO Q4H PRN PRN Reason: Pain Last Admin: 02/03/17 19:49 Dose: 650 mg Diazepam (Valium) 0 mg IVPUSH ASDIRECTED PRN; Protocol PRN Reason: ETOH WITHDRAWAL Last Admin: 02/03/17 23:32 Dose: 20 mg Diazepam (Valium.) 0 mg PO ASDIRECTED PRN; Protocol PRN Reason: ETOH WITHDRAWAL Last Admin: 02/03/17 16:57 Dose: 10 mg Folic Acid (Folic Acid) 1 mg PO DAILY [facility] Last Admin: 02/04/17 10:21 Dose: 1 mg Haloperidol Lactate (Haldol) 5 mg IVPUSH Q1H PRN PRN Reason: Agitation Last Admin: 02/04/17 16:19 Dose: 5 mg Dextrose/Sodium Chloride (Dextrose 5%-Normal Saline) 1,000 mls @ 125 mls/hr IV ASDIRECTED [facility] Last Admin: 02/04/17 16:59 Dose: 125 mls/hr Magnesium Sulfate 2 gm/ Premix 50 mls @ 25 mls/hr IV Q6H [facility] Stop: 02/04/17 23:59 Last Admin: 02/04/17 15:43 Dose: 25 mls/hr Lorazepam (Ativan) 0.5 - 4 mg IVPUSH Q30M PRN; Protocol PRN Reason: Anxiety Last Admin: 02/04/17 17:32 Dose: 4 mg Metoprolol Succinate (Toprol Xl) 200 mg PO DAILY [facility] Last Admin: 02/04/17 10:21 Dose: 200 mg Multivitamins/Minerals (Thera M Plus) 1 tab PO DAILY [facility] Last Admin: 02/04/17 10:21 Dose: 1 tab Thiamine HCl (Vitamin B-1) 100 mg PO BID [facility] Stop: 02/09/17 21:01 Last Admin: 02/04/17 10:21 Dose: 100 mg Discontinued Medications Sodium Chloride (Normal Saline) 1,000 mls @ 125 mls/hr IV ASDIRECTED [facility] Potassium Chloride 20 meq/Lidocaine HCl 2 ml/ Sodium Chloride 112 mls @ 56 mls/ hr IV Q2H [facility] Stop: 02/04/17 13:59 Last Admin: 03/20/17 13:37 Dose: 56 mls/hr Lorazepam (Ativan) 1 mg PO ONETIME ONE Stop: 02/03/17 11:13 Last Admin: 02/03/17 11:17 Dose: 1 mg Lorazepam (Ativan) Confirm Administered Dose 4 mg .ROUTE .STK-MED ONE Stop: 02/03/17 23:50 Last Admin: 02/04/17 00:08 Dose: Not Given - Exam General: moderate distress HEENT: Pupils equal, Pupils reactive, EOMI, Mucous membr. moist/pink Neck: supple Lungs: Clear to auscultation, Normal respiratory effort Cardiovascular: Regular Rate Abdomen: bowel sounds present, soft, no tenderness, no distension Extremities: normal pulses Peripheral Pulses: 1+: radial (L), radial (R) Skin: intact Neurological: other (He is confused unable to ambulate secondary to delirium tremors.) Psy/Mental Status: anxious, withdrawal symptoms - Problem List Review Problem List Initiated/Reviewed/Updated: Yes - My Orders Last 24 Hours: My Active Orders 02/03/17 19:41 Acetaminophen [Tylenol] 650 mg PO Q4H PRN 02/03/17 23:56 LORazepam [Ativan] 0.5 - 4 mg IVPUSH Q30M PRN 02/04/17 02:20 Haloperidol Lactate [Haldol] 5 mg IVPUSH Q1H PRN 02/04/17 10:00 Magnesium Sulfate/Water [Magnesium Sulfate 2 GM in Water 50 ML] 2 gm Premix Bag 1 bag IV Q6H 02/05/17 05:00 CBC W/O DIFF,HEMOGRAM [HEME] Routine COMPREHENSIVE METABOLIC PN,CMP [CHEM] Routine LIPASE [CHEM] Routine - Plan Plan:: Assessment/plan: #1. Alcoholism with delirium tremors. He is slowly getting be Haldol and still needing intensive care unable to feed himself. His aspartate aminotransfer is coming down now 111 from 171. He still needs total care. #2. Hypertension. Has remained hypertensive #3. Obesity. Chronic
[2017-02-05] MEDS: Dextrose 5%-0.9% NaCl 1,000 ML IV SCH ×3 (00:59→17:01)
[2017-02-05] MEDS: LORazepam 2 MG/ML MDV IVPUSH PRN ×17 (01:19→23:23)
[2017-02-05] MEDS: Thiamine 100 MG Tab PO SCH ×2 (08:35→20:28)
[2017-02-05] MEDS: Folic Acid 1 MG Tab PO SCH (08:35)
[2017-02-05] MEDS: Multivitamins with Iron/Calcium/Folic Acid/Minerals Tab PO SCH (08:35)
[2017-02-05] MEDS: Metoprolol Succinate 50 MG Tab.ER PO SCH (08:35)
[2017-02-05] MEDS: Acetaminophen 325 MG Tab PO PRN (22:02)
[2017-02-06] MEDS: Dextrose 5%-0.9% NaCl 1,000 ML IV SCH ×3 (00:54→16:28)
[2017-02-06] MEDS: LORazepam 2 MG/ML MDV IVPUSH PRN ×2 (00:55→02:58)
[2017-02-06] MEDS: Multivitamins with Iron/Calcium/Folic Acid/Minerals Tab PO SCH (09:03)
[2017-02-06] MEDS: Folic Acid 1 MG Tab PO SCH (09:03)
[2017-02-06] MEDS: Metoprolol Succinate 50 MG Tab.ER PO SCH (09:04)
[2017-02-06] MEDS: Thiamine 100 MG Tab PO SCH ×2 (09:05→21:37)
--- NOTE | 2017-02-06 16:42 | PCM.PN ---
- General Info Date of Service: 02/06/17 Functional Status: Reports: pain controlled - Review of Systems General: Reports: Weakness, Night Sweats HEENT: Reports: dysphasia Cardiovascular: Reports: No Symptoms Gastrointestinal: Reports: No symptoms Genitourinary: Reports: no symptoms Musculoskeletal: Reports: no symptoms Skin: Reports: no symptoms Neurological: Reports: Difficulty Walking, Weakness, Gait Disturbance Psychiatric: Reports: mood lability, agitation - Patient Data Vitals - most recent: Last Vital Signs Temp 98.5 F 02/06/17 01:00 Pulse 89 02/06/17 16:00 Resp 25 H 02/06/17 16:00 BP 143/110 H 02/06/17 16:00 Pulse Ox 100 02/06/17 15:00 Weight - most recent: 175 lb 11.335 oz I&O - last 24 hours: Intake & Output 02/06/17 02/06/17 02/06/17 06:59 14:59 22:59 Intake Total 1468 240 Output Total 900 Balance 568 240 Med Orders - Current: Current Medications Acetaminophen (Tylenol) 650 mg PO Q4H PRN PRN Reason: Pain Last Admin: 02/05/17 22:02 Dose: 650 mg Diazepam (Valium) 0 mg IVPUSH ASDIRECTED PRN; Protocol PRN Reason: ETOH WITHDRAWAL Last Admin: 02/03/17 23:32 Dose: 20 mg Diazepam (Valium.) 0 mg PO ASDIRECTED PRN; Protocol PRN Reason: ETOH WITHDRAWAL Last Admin: 02/03/17 16:57 Dose: 10 mg Folic Acid (Folic Acid) 1 mg PO DAILY [facility] Last Admin: 02/06/17 09:03 Dose: 1 mg Haloperidol Lactate (Haldol) 5 mg IVPUSH Q1H PRN PRN Reason: Agitation Last Admin: 02/04/17 21:11 Dose: 5 mg Dextrose/Sodium Chloride (Dextrose 5%-Normal Saline) 1,000 mls @ 125 mls/hr IV ASDIRECTED [facility] Last Admin: 02/06/17 16:28 Dose: 125 mls/hr Lorazepam (Ativan) 0.5 - 4 mg IVPUSH Q30M PRN; Protocol PRN Reason: Anxiety Last Admin: 02/06/17 02:58 Dose: 2 mg Metoprolol Succinate (Toprol Xl) 200 mg PO DAILY [facility] Last Admin: 02/06/17 09:04 Dose: 200 mg Multivitamins/Minerals (Thera M Plus) 1 tab PO DAILY [facility] Last Admin: 02/06/17 09:03 Dose: 1 tab Thiamine HCl (Vitamin B-1) 100 mg PO BID [facility] Stop: 02/09/17 21:01 Last Admin: 02/06/17 09:05 Dose: 100 mg Discontinued Medications Sodium Chloride (Normal Saline) 1,000 mls @ 125 mls/hr IV ASDIRECTED [facility] Potassium Chloride 20 meq/Lidocaine HCl 2 ml/ Sodium Chloride 112 mls @ 56 mls/ hr IV Q2H [facility] Stop: 02/04/17 13:59 Last Admin: 02/04/17 13:37 Dose: 56 mls/hr Magnesium Sulfate 2 gm/ Premix 50 mls @ 25 mls/hr IV Q6H [facility] Stop: 02/04/17 23:59 Last Admin: 02/04/17 22:28 Dose: 25 mls/hr Lorazepam (Ativan) 1 mg PO ONETIME ONE Stop: 02/03/17 11:13 Last Admin: 02/03/17 11:17 Dose: 1 mg Lorazepam (Ativan) Confirm Administered Dose 4 mg .ROUTE .STK-MED ONE Stop: 02/03/17 23:50 Last Admin: 02/04/17 00:08 Dose: Not Given - Exam General: moderate distress HEENT: Pupils equal, Pupils reactive, EOMI, Mucous membr. moist/pink Neck: supple Lungs: Clear to auscultation, Normal respiratory effort Cardiovascular: Regular Rate, Regular Rhythm Abdomen: bowel sounds present, soft, no tenderness, no distension Peripheral Pulses: 1+: radial (L), radial (R) Skin: cool Psy/Mental Status: anxious, agitated, hallucinations - Problem List Review Problem List Initiated/Reviewed/Updated: Yes - Plan Plan:: Assessment/plan: #1. Alcoholism with delirium tremors. Is getting less medicine today is still confused and unable to feed himself and unable to ambulate. #2. Hypertension. Has remained hypertensive #3. Obesity. Chronic Check his hemoglobin is 11.1 slightly low potassium is low at 3.3 and AST initially was 171 now 111. Overall prognosis is certainly guarded as he is recovering very slowly.
[2017-02-06] MEDS ORDERED: Potassium Chloride 20 MEQ Tab.ER PO SCH (21:00)
[2017-02-06] MEDS: Haloperidol Lactate 5 MG/ML SDV IVPUSH PRN (22:24)
[2017-02-07] MEDS: Haloperidol Lactate 5 MG/ML SDV IVPUSH PRN ×3 (00:27→05:14)
[2017-02-07] MEDS: LORazepam 2 MG/ML MDV IVPUSH PRN ×3 (00:59→04:22)
[2017-02-07] MEDS: Acetaminophen 325 MG Tab PO PRN ×3 (05:13→19:59)
[2017-02-07] MEDS ORDERED: Potassium Chloride 20 MEQ Tab.ER PO SCH (09:00)
[2017-02-07] MEDS: Dextrose 5%-0.9% NaCl 1,000 ML IV SCH ×3 (10:02→18:03)
[2017-02-07] MEDS: Metoprolol Succinate 50 MG Tab.ER PO SCH (11:14)
[2017-02-07] MEDS: Potassium Chloride 20 MEQ Tab.ER PO SCH ×2 (11:26→16:12)
[2017-02-07] MEDS: Thiamine 100 MG Tab PO SCH ×2 (17:40→20:00)
[2017-02-07] MEDS: Folic Acid 1 MG Tab PO SCH (17:40)
[2017-02-07] MEDS: Multivitamins with Iron/Calcium/Folic Acid/Minerals Tab PO SCH (17:40)
--- NOTE | 2017-02-07 18:31 | PCM.PN ---
- General Info Date of Service: 02/07/17 Subjective Update: He was in and out of semi-comatose condition. He is unable to feed himself. He does know where he is at present time. This evening he is lethargic unable to open his eyes as he was talking earlier. Functional Status: Reports: pain controlled - Review of Systems General: Reports: Weakness, Fatigue HEENT: Reports: no symptoms Pulmonary: Reports: no symptoms Cardiovascular: Reports: No Symptoms Gastrointestinal: Reports: No symptoms Genitourinary: Reports: no symptoms Musculoskeletal: Reports: no symptoms Neurological: Reports: Difficulty Walking, Gait Disturbance Psychiatric: Reports: confusion, agitation - Patient Data Vitals - most recent: Last Vital Signs Temp 100.3 F 02/07/17 15:00 Pulse 74 02/07/17 18:00 Resp 22 H 02/07/17 18:00 BP 116/63 02/07/17 18:00 Pulse Ox 100 02/07/17 18:00 Weight - most recent: 175 lb 11.335 oz I&O - last 24 hours: Intake & Output 02/07/17 02/07/17 02/07/17 06:59 14:59 22:59 Intake Total 1106 1491 Output Total 300 Balance 1106 -300 1491 Med Orders - Current: Current Medications Acetaminophen (Tylenol) 650 mg PO Q4H PRN PRN Reason: Pain Last Admin: 02/07/17 13:18 Dose: 650 mg Diazepam (Valium) 0 mg IVPUSH ASDIRECTED PRN; Protocol PRN Reason: ETOH WITHDRAWAL Last Admin: 02/03/17 23:32 Dose: 20 mg Diazepam (Valium.) 0 mg PO ASDIRECTED PRN; Protocol PRN Reason: ETOH WITHDRAWAL Last Admin: 02/03/17 16:57 Dose: 10 mg Folic Acid (Folic Acid) 1 mg PO DAILY [facility] Last Admin: 02/07/17 17:40 Dose: Not Given Haloperidol Lactate (Haldol) 5 mg IVPUSH Q1H PRN PRN Reason: Agitation Last Admin: 02/07/17 05:14 Dose: 5 mg Dextrose/Sodium Chloride (Dextrose 5%-Normal Saline) 1,000 mls @ 125 mls/hr IV ASDIRECTED [facility] Last Admin: 02/07/17 18:03 Dose: 125 mls/hr Lorazepam (Ativan) 0.5 - 4 mg IVPUSH Q30M PRN; Protocol PRN Reason: Anxiety Last Admin: 02/07/17 04:22 Dose: 2 mg Metoprolol Succinate (Toprol Xl) 200 mg PO DAILY [facility] Last Admin: 02/07/17 11:14 Dose: 200 mg Multivitamins/Minerals (Thera M Plus) 1 tab PO DAILY [facility] Last Admin: 02/07/17 17:40 Dose: Not Given Potassium Chloride (Klor-Con M20) 20 meq PO BIDMEALS [facility] Last Admin: 02/07/17 16:12 Dose: 20 meq Thiamine HCl (Vitamin B-1) 100 mg PO BID [facility] Stop: 02/09/17 21:01 Last Admin: 02/07/17 17:40 Dose: Not Given Discontinued Medications Sodium Chloride (Normal Saline) 1,000 mls @ 125 mls/hr IV ASDIRECTED [facility] Potassium Chloride 20 meq/Lidocaine HCl 2 ml/ Sodium Chloride 112 mls @ 56 mls/ hr IV Q2H [facility] Stop: 02/04/17 13:59 Last Admin: 02/04/17 13:37 Dose: 56 mls/hr Magnesium Sulfate 2 gm/ Premix 50 mls @ 25 mls/hr IV Q6H [facility] Stop: 02/04/17 23:59 Last Admin: 02/04/17 22:28 Dose: 25 mls/hr Lorazepam (Ativan) 1 mg PO ONETIME ONE Stop: 02/03/17 11:13 Last Admin: 02/03/17 11:17 Dose: 1 mg Lorazepam (Ativan) Confirm Administered Dose 4 mg .ROUTE .STK-MED ONE Stop: 02/03/17 23:50 Last Admin: 02/04/17 00:08 Dose: Not Given Potassium Chloride (Klor-Con M20) 20 meq PO BID [facility] Last Admin: 02/06/17 21:37 Dose: 20 meq - Exam General: moderate distress HEENT: Pupils equal, Pupils reactive, EOMI, Mucous membr. moist/pink Neck: supple Lungs: Clear to auscultation, Normal respiratory effort Cardiovascular: Regular Rate, Regular Rhythm Abdomen: soft, no tenderness, no distension Extremities: no edema Peripheral Pulses: 1+: radial (L), radial (R) Skin: warm, dry, intact Psy/Mental Status: withdrawal symptoms - Problem List Review Problem List Initiated/Reviewed/Updated: Yes - My Orders Last 24 Hours: My Active Orders 02/07/17 08:00 Potassium Chloride [Klor-Con M20] 20 meq PO BIDMEALS - Plan Plan:: Assessment/plan: #1. Alcoholism with delirium tremors. Mentally he has not made a lot of improvement still very lethargic and unable to ambulate. #2. Hypertension. He is good control of blood pressure at present time. #3. Obesity. Stable Blood work is pending tomorrow hopefully he'll respond psychologically soon.
[2017-02-08] MEDS: Dextrose 5%-0.9% NaCl 1,000 ML IV SCH (01:29)
[2017-02-08] MEDS: Acetaminophen 325 MG Tab PO PRN ×3 (02:26→19:28)
[2017-02-08] MEDS: Thiamine 100 MG Tab PO SCH ×2 (08:36→19:28)
[2017-02-08] MEDS: Metoprolol Succinate 50 MG Tab.ER PO SCH (08:37)
[2017-02-08] MEDS: Potassium Chloride 20 MEQ Tab.ER PO SCH ×2 (08:37→16:14)
[2017-02-08] MEDS: Multivitamins with Iron/Calcium/Folic Acid/Minerals Tab PO SCH (08:37)
[2017-02-08] MEDS: Folic Acid 1 MG Tab PO SCH (08:38)
--- NOTE | 2017-02-08 14:36 | PCM.PN ---
- General Info Date of Service: 02/08/17 Functional Status: Reports: pain controlled - Review of Systems General: Reports: Weakness HEENT: Reports: no symptoms Pulmonary: Reports: no symptoms Cardiovascular: Reports: No Symptoms Gastrointestinal: Reports: No symptoms Genitourinary: Reports: no symptoms Musculoskeletal: Reports: no symptoms Skin: Reports: no symptoms Neurological: Reports: No Symptoms Psychiatric: Reports: confusion - Patient Data Vitals - most recent: Last Vital Signs Temp 98.9 F 02/08/17 14:00 Pulse 77 02/08/17 14:00 Resp 20 02/08/17 14:00 BP 129/76 02/08/17 14:00 Pulse Ox 99 02/08/17 14:00 Weight - most recent: 173 lb 1.006 oz I&O - last 24 hours: Intake & Output 02/07/17 02/08/17 02/08/17 22:59 06:59 14:59 Intake Total 1731 1980 1100 Output Total 200 600 Balance 1531 1380 1100 Lab Results last 24 hrs: Laboratory Results - last 24 hr 02/08/17 02/08/17 Range/Units 05:14 05:14 WBC 4.4 L (4.5-11.0) K/uL RBC 3.27 L (4.30-5.90) M/uL Hgb 11.1 L (12.0-15.0) g/dL Hct 33.3 L (40.0-54.0) % MCV 102 H (80-98) fL MCH 34 H (27-31) pg MCHC 33 (32-36) % Plt Count 126 L (150-400) K/uL Neut % (Auto) 47 (36-66) % Lymph % (Auto) 15 L (24-44) % [place] % (Auto) 38 H (2-6) % Eos % (Auto) 0 L (2-4) % Baso % (Auto) 1 (0-1) % Sodium 142 (140-148) mmol/L Potassium 3.1 L (3.6-5.2) mmol/L Chloride 105 (100-108) mmol/L Carbon Dioxide 26 (21-32) mmol/L Anion Gap 14.1 H (5.0-14.0) mmol/L BUN 5 L D (7-18) mg/dL Creatinine 0.7 L (0.8-1.3) mg/dL Est Cr Clr Drug Dosing 122.14 mL/min Estimated GFR (MDRD) > 60 (>60) Glucose 125 H (74-106) mg/dL Calcium 8.2 L (8.5-10.1) mg/dL Total Bilirubin 2.1 H (0.2-1.0) mg/dL AST 88 H (15-37) U/L ALT 52 (12-78) U/L Alkaline Phosphatase 99 (46-116) U/L Total Protein 6.4 (6.4-8.2) g/dL Albumin 2.8 L (3.4-5.0) g/dL Globulin 3.6 H (2.3-3.5) g/dL Albumin/Globulin Ratio 0.8 L (1.2-2.2) Med Orders - Current: Current Medications Acetaminophen (Tylenol) 650 mg PO Q4H PRN PRN Reason: Pain Last Admin: 02/08/17 07:08 Dose: 650 mg Diazepam (Valium) 0 mg IVPUSH ASDIRECTED PRN; Protocol PRN Reason: ETOH WITHDRAWAL Last Admin: 02/03/17 23:32 Dose: 20 mg Diazepam (Valium.) 0 mg PO ASDIRECTED PRN; Protocol PRN Reason: ETOH WITHDRAWAL Last Admin: 02/03/17 16:57 Dose: 10 mg Folic Acid (Folic Acid) 1 mg PO DAILY [facility] Last Admin: 02/08/17 08:38 Dose: 1 mg Haloperidol Lactate (Haldol) 5 mg IVPUSH Q1H PRN PRN Reason: Agitation Last Admin: 02/07/17 05:14 Dose: 5 mg Dextrose/Sodium Chloride (Dextrose 5%-Normal Saline) 1,000 mls @ 125 mls/hr IV ASDIRECTED [facility] Last Admin: 02/08/17 01:29 Dose: 125 mls/hr Lorazepam (Ativan) 0.5 - 4 mg IVPUSH Q30M PRN; Protocol PRN Reason: Anxiety Last Admin: 02/07/17 04:22 Dose: 2 mg Metoprolol Succinate (Toprol Xl) 200 mg PO DAILY [facility] Last Admin: 02/08/17 08:37 Dose: 200 mg Multivitamins/Minerals (Thera M Plus) 1 tab PO DAILY [facility] Last Admin: 02/08/17 08:37 Dose: 1 tab Potassium Chloride (Klor-Con M20) 20 meq PO BIDMEALS [facility] Last Admin: 02/08/17 08:37 Dose: 20 meq Thiamine HCl (Vitamin B-1) 100 mg PO BID [facility] Stop: 02/09/17 21:01 Last Admin: 02/08/17 08:36 Dose: 100 mg Discontinued Medications Sodium Chloride (Normal Saline) 1,000 mls @ 125 mls/hr IV ASDIRECTED [facility] Potassium Chloride 20 meq/Lidocaine HCl 2 ml/ Sodium Chloride 112 mls @ 56 mls/ hr IV Q2H [facility] Stop: 02/04/17 13:59 Last Admin: 02/04/17 13:37 Dose: 56 mls/hr Magnesium Sulfate 2 gm/ Premix 50 mls @ 25 mls/hr IV Q6H [facility] Stop: 02/04/17 23:59 Last Admin: 02/04/17 22:28 Dose: 25 mls/hr Lorazepam (Ativan) 1 mg PO ONETIME ONE Stop: 02/03/17 11:13 Last Admin: 02/03/17 11:17 Dose: 1 mg Lorazepam (Ativan) Confirm Administered Dose 4 mg .ROUTE .STK-MED ONE Stop: 02/03/17 23:50 Last Admin: 02/04/17 00:08 Dose: Not Given Potassium Chloride (Klor-Con M20) 20 meq PO BID [facility] Last Admin: 02/06/17 21:37 Dose: 20 meq - Exam General: cooperative, moderate distress HEENT: Pupils equal, Pupils reactive, EOMI, Mucous membr. moist/pink Neck: supple Lungs: Decreased breath sounds Cardiovascular: Regular Rate, Regular Rhythm Abdomen: bowel sounds present, no tenderness Extremities: no edema Peripheral Pulses: 1+: radial (L), radial (R) Skin: warm, dry, intact Neurological: no new focal deficit Psy/Mental Status: withdrawal symptoms - Problem List Review Problem List Initiated/Reviewed/Updated: Yes - Plan Plan:: Assessment/plan: #1. Alcoholism with delirium tremors. Is making slow improvement. He is feeding himself having a difficult time. He is unable to bear any weight or walk yet. #2. Hypertension. He is good control of blood pressure at present time. #3. Obesity. Stable His potassium was slightly low we'll give him more oral medication
[2017-02-08] MEDS ORDERED: Potassium Chloride 20 MEQ Tab.ER PO ONE (15:00)
[2017-02-09] MEDS: Metoprolol Succinate 50 MG Tab.ER PO SCH (07:59)
[2017-02-09] MEDS: Potassium Chloride 20 MEQ Tab.ER PO SCH ×2 (08:01→18:21)
[2017-02-09] MEDS: Thiamine 100 MG Tab PO SCH ×4 (08:02→21:13)
[2017-02-09] MEDS: Folic Acid 1 MG Tab PO SCH (08:02)
[2017-02-09] MEDS: Multivitamins with Iron/Calcium/Folic Acid/Minerals Tab PO SCH (08:02)
--- NOTE | 2017-02-09 09:31 | PCM.PN ---
- General Info Date of Service: 02/09/17 Functional Status: Reports: pain controlled - Review of Systems General: Reports: Weakness, Fatigue HEENT: Reports: no symptoms Pulmonary: Reports: no symptoms Cardiovascular: Reports: No Symptoms Gastrointestinal: Reports: No symptoms Genitourinary: Reports: no symptoms Musculoskeletal: Reports: other (generalized weakness unable to ambulate) Skin: Reports: no symptoms, other Neurological: Reports: Tremors, Difficulty Walking, Weakness, Gait Disturbance Psychiatric: Reports: confusion - Patient Data Vitals - most recent: Last Vital Signs Temp 100.0 F 02/09/17 08:15 Pulse 91 02/09/17 08:15 Resp 17 02/09/17 08:15 BP 128/68 02/09/17 08:15 Pulse Ox 99 02/09/17 08:15 Weight - most recent: 176 lb 5.917 oz I&O - last 24 hours: Intake & Output 02/08/17 02/09/17 02/09/17 22:59 06:59 14:59 Intake Total 1000 360 Output Total 800 600 Balance 200 -240 Med Orders - Current: Current Medications Acetaminophen (Tylenol) 650 mg PO Q4H PRN PRN Reason: Pain Last Admin: 02/08/17 19:28 Dose: 650 mg Diazepam (Valium) 0 mg IVPUSH ASDIRECTED PRN; Protocol PRN Reason: ETOH WITHDRAWAL Last Admin: 02/03/17 23:32 Dose: 20 mg Diazepam (Valium.) 0 mg PO ASDIRECTED PRN; Protocol PRN Reason: ETOH WITHDRAWAL Last Admin: 02/03/17 16:57 Dose: 10 mg Folic Acid (Folic Acid) 1 mg PO DAILY [facility] Last Admin: 02/09/17 08:02 Dose: 1 mg Haloperidol Lactate (Haldol) 5 mg IVPUSH Q1H PRN PRN Reason: Agitation Last Admin: 02/07/17 05:14 Dose: 5 mg Lorazepam (Ativan) 0.5 - 4 mg IVPUSH Q30M PRN; Protocol PRN Reason: Anxiety Last Admin: 02/07/17 04:22 Dose: 2 mg Metoprolol Succinate (Toprol Xl) 200 mg PO DAILY [facility] Last Admin: 02/09/17 07:59 Dose: 200 mg Multivitamins/Minerals (Thera M Plus) 1 tab PO DAILY [facility] Last Admin: 02/09/17 08:02 Dose: 1 tab Potassium Chloride (Klor-Con M20) 20 meq PO BIDMEALS [facility] Last Admin: 02/09/17 08:01 Dose: 20 meq Thiamine HCl (Vitamin B-1) 100 mg PO BID [facility] Stop: 02/09/17 21:01 Last Admin: 02/09/17 08:02 Dose: 100 mg Discontinued Medications Sodium Chloride (Normal Saline) 1,000 mls @ 125 mls/hr IV ASDIRECTED [facility] Dextrose/Sodium Chloride (Dextrose 5%-Normal Saline) 1,000 mls @ 125 mls/hr IV ASDIRECTED [facility] Last Admin: 02/08/17 01:29 Dose: 125 mls/hr Potassium Chloride 20 meq/Lidocaine HCl 2 ml/ Sodium Chloride 112 mls @ 56 mls/ hr IV Q2H [facility] Stop: 02/04/17 13:59 Last Admin: 02/04/17 13:37 Dose: 56 mls/hr Magnesium Sulfate 2 gm/ Premix 50 mls @ 25 mls/hr IV Q6H [facility] Stop: 02/04/17 23:59 Last Admin: 02/04/17 22:28 Dose: 25 mls/hr Lorazepam (Ativan) 1 mg PO ONETIME ONE Stop: 02/03/17 11:13 Last Admin: 02/03/17 11:17 Dose: 1 mg Lorazepam (Ativan) Confirm Administered Dose 4 mg .ROUTE .STK-MED ONE Stop: 02/03/17 23:50 Last Admin: 02/04/17 00:08 Dose: Not Given Potassium Chloride (Klor-Con M20) 20 meq PO BID [facility] Last Admin: 02/06/17 21:37 Dose: 20 meq Potassium Chloride (Klor-Con M20) 20 meq PO ONETIME ONE Stop: 02/08/17 15:01 Last Admin: 02/08/17 15:18 Dose: 20 meq - Exam General: moderate distress, lethargic, obtunded HEENT: Pupils equal, Pupils reactive, EOMI, Mucous membr. moist/pink Neck: supple Lungs: Clear to auscultation, Normal respiratory effort Cardiovascular: Regular Rate, Regular Rhythm Abdomen: tenderness Extremities: no edema Skin: warm, dry, intact Neurological: other (slurred speech with difficulty feeding himself.) Psy/Mental Status: withdrawal symptoms - Problem List Review Problem List Initiated/Reviewed/Updated: Yes - My Orders Last 24 Hours: My Active Orders 02/08/17 14:40 Convert IV to Saline Lock [OM.PC] Routine 02/09/17 09:29 AMMONIA VENOUS [CHEM] Routine 02/09/17 09:30 BASIC METABOLIC PANEL,BMP [CHEM] Routine 02/09/17 09:31 CBC WITH AUTO DIFF [HEME] Routine - Plan Plan:: Assessment/plan: #1. Alcoholism with delirium tremors. Is making slow improvement. He is feeding himself having a difficult time. He is unable to bear any weight or walk yet. Ammonium level is pending. #2. Hypertension. He is good control of blood pressure at present time. #3. Obesity. Stable His potassium was slightly low we'll give him more oral medication
[2017-02-09] MEDS: Acetaminophen 325 MG Tab PO PRN ×2 (18:22→22:56)
[2017-02-10] MEDS: Acetaminophen 325 MG Tab PO PRN ×3 (04:46→19:46)
[2017-02-10] MEDS: Potassium Chloride 20 MEQ Tab.ER PO SCH ×2 (08:05→17:14)
[2017-02-10] MEDS: Folic Acid 1 MG Tab PO SCH (08:06)
[2017-02-10] MEDS: Metoprolol Succinate 50 MG Tab.ER PO SCH (08:06)
[2017-02-10] MEDS: Multivitamins with Iron/Calcium/Folic Acid/Minerals Tab PO SCH (08:06)
--- NOTE | 2017-02-10 10:34 | PCM.PN ---
- General Info Date of Service: 02/10/17 Admission Dx/Problem (Free Text): He is to having a difficult time getting up and walking he is a two-person assist from bed to the chair. Today for the first time he asked who I was and said he had never seen me before. Mentally he is improving. Functional Status: Reports: pain controlled - Review of Systems General: Reports: Weakness, Fatigue HEENT: Reports: no symptoms Pulmonary: Reports: no symptoms Cardiovascular: Reports: No Symptoms Gastrointestinal: Reports: Decreased appetite Genitourinary: Reports: no symptoms Musculoskeletal: Reports: no symptoms Skin: Reports: no symptoms Neurological: Reports: Confusion, Difficulty Walking, Weakness, Change in Speech , Gait Disturbance - Patient Data Vitals - most recent: Last Vital Signs Temp 98.8 F 02/10/17 08:00 Pulse 78 02/10/17 08:06 Resp 19 02/10/17 08:00 BP 129/70 02/10/17 08:06 Pulse Ox 80 L 02/10/17 08:00 Weight - most recent: 176 lb 5.917 oz I&O - last 24 hours: Intake & Output 02/09/17 02/10/17 02/10/17 22:59 06:59 14:59 Intake Total 400 240 Output Total 400 Balance 400 -160 Med Orders - Current: Current Medications Acetaminophen (Tylenol) 650 mg PO Q4H PRN PRN Reason: Pain Last Admin: 02/10/17 04:46 Dose: 650 mg Diazepam (Valium) 0 mg IVPUSH ASDIRECTED PRN; Protocol PRN Reason: ETOH WITHDRAWAL Last Admin: 02/03/17 23:32 Dose: 20 mg Diazepam (Valium.) 0 mg PO ASDIRECTED PRN; Protocol PRN Reason: ETOH WITHDRAWAL Last Admin: 02/03/17 16:57 Dose: 10 mg Folic Acid (Folic Acid) 1 mg PO DAILY [facility] Last Admin: 02/10/17 08:06 Dose: 1 mg Haloperidol Lactate (Haldol) 5 mg IVPUSH Q1H PRN PRN Reason: Agitation Last Admin: 02/07/17 05:14 Dose: 5 mg Lactulose (Chronulac) 5 gm PO DAILY [facility] Lorazepam (Ativan) 0.5 - 4 mg IVPUSH Q30M PRN; Protocol PRN Reason: Anxiety Last Admin: 02/07/17 04:22 Dose: 2 mg Metoprolol Succinate (Toprol Xl) 200 mg PO DAILY [facility] Last Admin: 02/10/17 08:06 Dose: 200 mg Multivitamins/Minerals (Thera M Plus) 1 tab PO DAILY [facility] Last Admin: 02/10/17 08:06 Dose: 1 tab Potassium Chloride (Klor-Con M20) 20 meq PO BIDMEALS [facility] Last Admin: 02/10/17 08:05 Dose: 20 meq Discontinued Medications Sodium Chloride (Normal Saline) 1,000 mls @ 125 mls/hr IV ASDIRECTED [facility] Dextrose/Sodium Chloride (Dextrose 5%-Normal Saline) 1,000 mls @ 125 mls/hr IV ASDIRECTED [facility] Last Admin: 02/08/17 01:29 Dose: 125 mls/hr Potassium Chloride 20 meq/Lidocaine HCl 2 ml/ Sodium Chloride 112 mls @ 56 mls/ hr IV Q2H [facility] Stop: 02/04/17 13:59 Last Admin: 02/04/17 13:37 Dose: 56 mls/hr Magnesium Sulfate 2 gm/ Premix 50 mls @ 25 mls/hr IV Q6H [facility] Stop: 02/04/17 23:59 Last Admin: 02/04/17 22:28 Dose: 25 mls/hr Lorazepam (Ativan) 1 mg PO ONETIME ONE Stop: 02/03/17 11:13 Last Admin: 02/03/17 11:17 Dose: 1 mg Lorazepam (Ativan) Confirm Administered Dose 4 mg .ROUTE .STK-MED ONE Stop: 02/03/17 23:50 Last Admin: 02/04/17 00:08 Dose: Not Given Potassium Chloride (Klor-Con M20) 20 meq PO BID [facility] Last Admin: 02/06/17 21:37 Dose: 20 meq Potassium Chloride (Klor-Con M20) 20 meq PO ONETIME ONE Stop: 02/08/17 15:01 Last Admin: 02/08/17 15:18 Dose: 20 meq Thiamine HCl (Vitamin B-1) 100 mg PO BID [facility] Stop: 02/09/17 21:01 Last Admin: 02/09/17 21:13 Dose: Not Given - Exam General: cooperative, mild distress HEENT: Pupils equal, Pupils reactive, EOMI, Mucous membr. moist/pink Neck: supple Lungs: Clear to auscultation, Normal respiratory effort Cardiovascular: Regular Rate, Regular Rhythm Abdomen: bowel sounds present, soft, no tenderness, no distension Extremities: no edema Skin: warm, dry, intact Neurological: sensation intact Psy/Mental Status: withdrawal symptoms - Problem List Review Problem List Initiated/Reviewed/Updated: Yes - My Orders Last 24 Hours: My Active Orders 02/10/17 11:00 Lactulose [Chronulac] 5 gm PO DAILY 02/11/17 05:11 AMMONIA VENOUS [CHEM] Routine CBC WITH AUTO DIFF [HEME] Routine COMPREHENSIVE METABOLIC PN,CMP [CHEM] Routine - Plan Plan:: Assessment/plan: #1. Alcoholism with delirium tremors. Is making slow improvement. He is feeding himself having a difficult time. He is able to bear weight and walks to the chair with 2 person assist. His ammonium level is 39. I will start a small amount of lactulose to see if this will improve his mental function further. #2. Hypertension. He is good control of blood pressure at present time. #3. Obesity. Stable His potassium is improving but still in the normal limits at 3.5.
[2017-02-10] MEDS: Lactulose Soln 10 GM/15 ML 15 ML UD Cup PO SCH (13:46)
[2017-02-11] MEDS: Acetaminophen 325 MG Tab PO PRN ×3 (02:17→19:17)
[2017-02-11] MEDS: Lactulose Soln 10 GM/15 ML 15 ML UD Cup PO SCH (08:30)
[2017-02-11] MEDS: Multivitamins with Iron/Calcium/Folic Acid/Minerals Tab PO SCH (08:32)
[2017-02-11] MEDS: Potassium Chloride 20 MEQ Tab.ER PO SCH ×2 (08:32→18:08)
[2017-02-11] MEDS: Metoprolol Succinate 50 MG Tab.ER PO SCH (08:32)
[2017-02-11] MEDS: Folic Acid 1 MG Tab PO SCH (08:32)
--- NOTE | 2017-02-11 18:19 | PCM.PN ---
- General Info Date of Service: 02/11/17 Functional Status: Reports: pain controlled - Review of Systems General: Reports: Weakness, Fatigue HEENT: Reports: no symptoms Pulmonary: Reports: no symptoms Cardiovascular: Reports: No Symptoms Gastrointestinal: Reports: No symptoms Genitourinary: Reports: no symptoms Musculoskeletal: Reports: no symptoms Skin: Reports: no symptoms Neurological: Reports: Difficulty Walking, Weakness, Change in Speech, Gait Disturbance Psychiatric: Reports: other (slow mentally) - Patient Data Vitals - most recent: Last Vital Signs Temp 98.6 F 02/11/17 14:43 Pulse 76 02/11/17 14:43 Resp 18 02/11/17 14:43 BP 127/95 H 02/11/17 14:43 Pulse Ox 96 02/11/17 14:43 Weight - most recent: 171 lb 14.4 oz I&O - last 24 hours: Intake & Output 02/11/17 02/11/17 02/11/17 06:59 14:59 22:59 Intake Total 1360 Output Total 300 Balance -300 1360 Lab Results last 24 hrs: Laboratory Results - last 24 hr 02/11/17 02/11/17 02/11/17 Range/Units 04:45 04:45 04:45 WBC 5.8 (4.5-11.0) K/uL RBC 3.43 L (4.30-5.90) M/uL Hgb 11.6 L (12.0-15.0) g/dL Hct 34.2 L (40.0-54.0) % MCV 100 H (80-98) fL MCH 34 H (27-31) pg MCHC 34 (32-36) % Plt Count 254 (150-400) K/uL Neut % (Auto) 53 (36-66) % Lymph % (Auto) 20 L (24-44) % Kendall % (Auto) 25 H (2-6) % Eos % (Auto) 0 L (2-4) % Baso % (Auto) 1 (0-1) % Sodium 138 L (140-148) mmol/L Potassium 3.6 (3.6-5.2) mmol/L Chloride 102 (100-108) mmol/L Carbon Dioxide 28 (21-32) mmol/L Anion Gap 11.6 (5.0-14.0) mmol/L BUN 9 (7-18) mg/dL Creatinine 0.6 L (0.8-1.3) mg/dL Est Cr Clr Drug Dosing 142.50 mL/min Estimated GFR (MDRD) > 60 (>60) Glucose 104 (74-106) mg/dL Calcium 8.6 (8.5-10.1) mg/dL Total Bilirubin 2.1 H (0.2-1.0) mg/dL AST 125 H (15-37) U/L ALT 75 (12-78) U/L Alkaline Phosphatase 133 H (46-116) U/L Ammonia 25 (11-32) mmol/L Total Protein 7.1 (6.4-8.2) g/dL Albumin 3.0 L (3.4-5.0) g/dL Globulin 4.1 H (2.3-3.5) g/dL Albumin/Globulin Ratio 0.7 L (1.2-2.2) Med Orders - Current: Current Medications Acetaminophen (Tylenol) 650 mg PO Q4H PRN PRN Reason: Pain Last Admin: 02/11/17 11:52 Dose: 650 mg Folic Acid (Folic Acid) 1 mg PO DAILY [facility] Last Admin: 02/11/17 08:32 Dose: 1 mg Lactulose (Chronulac) 5 gm PO DAILY [facility] Last Admin: 02/11/17 08:30 Dose: 5 gm Metoprolol Succinate (Toprol Xl) 200 mg PO DAILY [facility] Last Admin: 02/11/17 08:32 Dose: 200 mg Multivitamins/Minerals (Thera M Plus) 1 tab PO DAILY [facility] Last Admin: 02/11/17 08:32 Dose: 1 tab Potassium Chloride (Klor-Con M20) 20 meq PO BIDMEALS [facility] Last Admin: 02/11/17 18:08 Dose: 20 meq Discontinued Medications Diazepam (Valium) 0 mg IVPUSH ASDIRECTED PRN; Protocol PRN Reason: ETOH WITHDRAWAL Last Admin: 02/03/17 23:32 Dose: 20 mg Diazepam (Valium.) 0 mg PO ASDIRECTED PRN; Protocol PRN Reason: ETOH WITHDRAWAL Last Admin: 02/03/17 16:57 Dose: 10 mg Haloperidol Lactate (Haldol) 5 mg IVPUSH Q1H PRN PRN Reason: Agitation Last Admin: 02/07/17 05:14 Dose: 5 mg Sodium Chloride (Normal Saline) 1,000 mls @ 125 mls/hr IV ASDIRECTED [facility] Dextrose/Sodium Chloride (Dextrose 5%-Normal Saline) 1,000 mls @ 125 mls/hr IV ASDIRECTED [facility] Last Admin: 02/08/17 01:29 Dose: 125 mls/hr Potassium Chloride 20 meq/Lidocaine HCl 2 ml/ Sodium Chloride 112 mls @ 56 mls/ hr IV Q2H [facility] Stop: 02/04/17 13:59 Last Admin: 02/04/17 13:37 Dose: 56 mls/hr Magnesium Sulfate 2 gm/ Premix 50 mls @ 25 mls/hr IV Q6H [facility] Stop: 02/04/17 23:59 Last Admin: 02/04/17 22:28 Dose: 25 mls/hr Lorazepam (Ativan) 1 mg PO ONETIME ONE Stop: 02/03/17 11:13 Last Admin: 02/03/17 11:17 Dose: 1 mg Lorazepam (Ativan) Confirm Administered Dose 4 mg .ROUTE .STK-MED ONE Stop: 02/03/17 23:50 Last Admin: 02/04/17 00:08 Dose: Not Given Lorazepam (Ativan) 0.5 - 4 mg IVPUSH Q30M PRN; Protocol PRN Reason: Anxiety Last Admin: 02/07/17 04:22 Dose: 2 mg Potassium Chloride (Klor-Con M20) 20 meq PO BID [facility] Last Admin: 02/06/17 21:37 Dose: 20 meq Potassium Chloride (Klor-Con M20) 20 meq PO ONETIME ONE Stop: 02/08/17 15:01 Last Admin: 02/08/17 15:18 Dose: 20 meq Thiamine HCl (Vitamin B-1) 100 mg PO BID [facility] Stop: 02/09/17 21:01 Last Admin: 02/09/17 21:13 Dose: Not Given - Exam General: alert, cooperative, mild distress HEENT: Pupils equal Neck: supple Lungs: Clear to auscultation, Normal respiratory effort Cardiovascular: Regular Rate, Regular Rhythm Abdomen: soft Extremities: no edema Peripheral Pulses: 1+: radial (L), radial (R) Skin: warm, dry, intact Neurological: reflexes equal bilateral Psy/Mental Status: withdrawal symptoms - Problem List Review Problem List Initiated/Reviewed/Updated: Yes - My Orders Last 24 Hours: My Active Orders 02/11/17 10:18 Consult to Physical Therapy [PT Evaluation and Treatment] [CONS] Routine 02/11/17 13:20 SCD [Sequential Compression Device] [OM.PC] Routine - Plan Plan:: Assessment/plan: #1. Alcoholism with delirium tremors. Is making slow improvement. He is feeding himself having less difficulty. He is able to bear weight and walks to the chair with 1 person assist. His ammonium level is 39. I will lactulose to see if this will improve his mental function further. #2. Hypertension. He is good control of blood pressure at present time 127/95 #3. Obesity. Stable His potassium is improving but still in the normal limits at 3.6. He is unstable and will need a care facility until his strength improves.
[2017-02-11] MEDS: Ibuprofen 800 MG Tab PO PRN (22:10)
[2017-02-12] MEDS: Acetaminophen 325 MG Tab PO PRN ×2 (04:06→21:02)
[2017-02-12] MEDS: Lactulose Soln 10 GM/15 ML 15 ML UD Cup PO SCH (08:42)
[2017-02-12] MEDS: Metoprolol Succinate 50 MG Tab.ER PO SCH (08:43)
[2017-02-12] MEDS: Folic Acid 1 MG Tab PO SCH (08:44)
[2017-02-12] MEDS: Potassium Chloride 20 MEQ Tab.ER PO SCH ×2 (08:44→16:13)
[2017-02-12] MEDS: Multivitamins with Iron/Calcium/Folic Acid/Minerals Tab PO SCH (08:44)
--- NOTE | 2017-02-12 12:02 | US ---
Abdomen Ltd HISTORY: Elevated liver enzymes. COMPARISON: None FINDINGS: There is diffuse fatty infiltration of the liver. Liver is enlarged measuring greater than 20 cm craniocaudal. Limited views of the medial aspect of the liver. Gallbladder demonstrates mobile shadowing stones. There is mild gallbladder wall thickening measurin g 4 mm. No positive Hutchins's sign. Common bile duct measures 4 mm. Limited evaluation of the pancrea s due to overlying bowel gas. Right kidney unremarkable. Inferior vena cava not seen due to bowel ga s. No ascites. Impression: 1. Hepatomegaly with diffuse fatty infiltration of liver. 2. Cholelithiasis. There is very mild gallbladder wall thickening. Patient does not have positive Mu rphy's sign. This could be a chronic finding.
--- NOTE | 2017-02-12 12:19 | CR ---
Shoulder Comp Bi HISTORY: Shoulder pain. COMPARISON: None FINDINGS: Mild AC joint degenerative change in the right shoulder. No fracture or dislocation. Left shoulder demonstrates no significant arthrosis no fracture or dislocation. Impression: Mild AC joint arthrosis right shoulder. No acute bony abnormality in the right or left shoulder.
[2017-02-12] MEDS: Ibuprofen 800 MG Tab PO PRN (13:14)
--- NOTE | 2017-02-12 18:37 | PCM.PN ---
- General Info Date of Service: 02/12/17 Functional Status: Reports: pain controlled - Review of Systems General: Reports: Weakness HEENT: Reports: no symptoms Pulmonary: Reports: no symptoms Cardiovascular: Reports: No Symptoms Gastrointestinal: Reports: Diarrhea Genitourinary: Reports: no symptoms Musculoskeletal: Reports: shoulder pain, back pain Skin: Reports: no symptoms Neurological: Reports: No Symptoms Psychiatric: Reports: depression - Patient Data Vitals - most recent: Last Vital Signs Temp 99.0 F 02/12/17 14:41 Pulse 69 02/12/17 14:41 Resp 18 02/12/17 14:41 BP 131/87 02/12/17 14:41 Pulse Ox 97 02/12/17 14:41 Weight - most recent: 171 lb 14.4 oz I&O - last 24 hours: Intake & Output 02/12/17 02/12/17 02/12/17 06:59 14:59 22:59 Intake Total 60 240 240 Balance 60 240 240 Lab Results last 24 hrs: Laboratory Results - last 24 hr 02/12/17 Range/Units 04:50 Sodium 139 L (140-148) mmol/L Potassium 3.8 (3.6-5.2) mmol/L Chloride 101 (100-108) mmol/L Carbon Dioxide 28 (21-32) mmol/L Anion Gap 13.8 (5.0-14.0) mmol/L BUN 10 (7-18) mg/dL Creatinine 0.7 L (0.8-1.3) mg/dL Est Cr Clr Drug Dosing 122.14 mL/min Estimated GFR (MDRD) > 60 (>60) Glucose 93 (74-106) mg/dL Calcium 8.9 (8.5-10.1) mg/dL Total Bilirubin 2.0 H (0.2-1.0) mg/dL AST 149 H (15-37) U/L ALT 93 H (12-78) U/L Alkaline Phosphatase 139 H (46-116) U/L Total Protein 7.3 (6.4-8.2) g/dL Albumin 3.1 L (3.4-5.0) g/dL Globulin 4.2 H (2.3-3.5) g/dL Albumin/Globulin Ratio 0.7 L (1.2-2.2) Med Orders - Current: Current Medications Acetaminophen (Tylenol) 650 mg PO Q4H PRN PRN Reason: Pain Last Admin: 02/12/17 04:06 Dose: 325 mg Folic Acid (Folic Acid) 1 mg PO DAILY [facility] Last Admin: 02/12/17 08:44 Dose: 1 mg Ibuprofen (Motrin) 800 mg PO Q8H PRN PRN Reason: Pain Last Admin: 02/12/17 13:14 Dose: 800 mg Lactulose (Chronulac) 5 gm PO DAILY [facility] Last Admin: 02/12/17 08:42 Dose: 5 gm Metoprolol Succinate (Toprol Xl) 200 mg PO DAILY [facility] Last Admin: 02/12/17 08:43 Dose: 200 mg Multivitamins/Minerals (Thera M Plus) 1 tab PO DAILY [facility] Last Admin: 02/12/17 08:44 Dose: 1 tab Potassium Chloride (Klor-Con M20) 20 meq PO BIDMEALS [facility] Last Admin: 02/12/17 16:13 Dose: 20 meq Discontinued Medications Diazepam (Valium) 0 mg IVPUSH ASDIRECTED PRN; Protocol PRN Reason: ETOH WITHDRAWAL Last Admin: 02/03/17 23:32 Dose: 20 mg Diazepam (Valium.) 0 mg PO ASDIRECTED PRN; Protocol PRN Reason: ETOH WITHDRAWAL Last Admin: 02/03/17 16:57 Dose: 10 mg Haloperidol Lactate (Haldol) 5 mg IVPUSH Q1H PRN PRN Reason: Agitation Last Admin: 02/07/17 05:14 Dose: 5 mg Sodium Chloride (Normal Saline) 1,000 mls @ 125 mls/hr IV ASDIRECTED [facility] Dextrose/Sodium Chloride (Dextrose 5%-Normal Saline) 1,000 mls @ 125 mls/hr IV ASDIRECTED [facility] Last Admin: 02/08/17 01:29 Dose: 125 mls/hr Potassium Chloride 20 meq/Lidocaine HCl 2 ml/ Sodium Chloride 112 mls @ 56 mls/ hr IV Q2H [facility] Stop: 02/04/17 13:59 Last Admin: 02/04/17 13:37 Dose: 56 mls/hr Magnesium Sulfate 2 gm/ Premix 50 mls @ 25 mls/hr IV Q6H [facility] Stop: 02/04/17 23:59 Last Admin: 02/04/17 22:28 Dose: 25 mls/hr Lorazepam (Ativan) 1 mg PO ONETIME ONE Stop: 02/03/17 11:13 Last Admin: 02/03/17 11:17 Dose: 1 mg Lorazepam (Ativan) Confirm Administered Dose 4 mg .ROUTE .STK-MED ONE Stop: 02/03/17 23:50 Last Admin: 02/04/17 00:08 Dose: Not Given Lorazepam (Ativan) 0.5 - 4 mg IVPUSH Q30M PRN; Protocol PRN Reason: Anxiety Last Admin: 02/07/17 04:22 Dose: 2 mg Potassium Chloride (Klor-Con M20) 20 meq PO BID [facility] Last Admin: 02/06/17 21:37 Dose: 20 meq Potassium Chloride (Klor-Con M20) 20 meq PO ONETIME ONE Stop: 02/08/17 15:01 Last Admin: 02/08/17 15:18 Dose: 20 meq Thiamine HCl (Vitamin B-1) 100 mg PO BID [facility] Stop: 02/09/17 21:01 Last Admin: 02/09/17 21:13 Dose: Not Given - Exam General: alert, oriented, cooperative, mild distress HEENT: Pupils equal, Pupils reactive Neck: supple Lungs: Clear to auscultation, Normal respiratory effort Cardiovascular: Regular Rate, Regular Rhythm Abdomen: bowel sounds present, soft, no tenderness, no distension Extremities: no edema Skin: warm, dry, intact Neurological: no new focal deficit Psy/Mental Status: alert, normal affect, normal mood - Problem List Review Problem List Initiated/Reviewed/Updated: Yes - My Orders Last 24 Hours: My Active Orders 02/11/17 21:31 Ibuprofen [Motrin] 800 mg PO Q8H PRN - Plan Plan:: Assessment/plan: #1. Alcoholism with delirium tremors. Is making slow improvement. He is feeding himself. He is able to bear weight and walks. His ammonium level was normal at 25. #2. Hypertension. He is good control of blood pressure at present time 131/87 #3. Obesity. Stable #4. Liver disfunction. An Ultrasound was done of the liver which showed fatty liver and gall stones probably chronic finding. #5. Shoulder pain. x-ray showed no fracture. Back x-rays neg. His potassium is improving but still in the normal limits at 3.8. He is unstable and will need a care facility until his strength improves.
[2017-02-13] MEDS: Multivitamins with Iron/Calcium/Folic Acid/Minerals Tab PO SCH (09:00)
[2017-02-13] MEDS: Folic Acid 1 MG Tab PO SCH (09:00)
[2017-02-13] MEDS: Potassium Chloride 20 MEQ Tab.ER PO SCH ×2 (09:01→17:27)
[2017-02-13] MEDS: Lactulose Soln 10 GM/15 ML 15 ML UD Cup PO SCH (09:01)
[2017-02-13] MEDS: Metoprolol Succinate 50 MG Tab.ER PO SCH (09:02)
[2017-02-13] MEDS: Acetaminophen 325 MG Tab PO PRN (09:08)
--- NOTE | 2017-02-13 18:31 | PCM.PN ---
- General Info Date of Service: 02/13/17 Functional Status: Reports: pain controlled - Review of Systems General: Reports: Weakness HEENT: Reports: no symptoms Pulmonary: Reports: no symptoms Cardiovascular: Reports: No Symptoms Gastrointestinal: Reports: No symptoms Genitourinary: Reports: no symptoms Musculoskeletal: Reports: no symptoms Skin: Reports: no symptoms Neurological: Reports: No Symptoms, Gait Disturbance Psychiatric: Reports: no symptoms - Patient Data Vitals - most recent: Last Vital Signs Temp 97.4 F 02/13/17 15:59 Pulse 71 02/13/17 15:59 Resp 20 02/13/17 15:59 BP 111/81 02/13/17 15:59 Pulse Ox 96 02/13/17 15:59 Weight - most recent: 167 lb 11.2 oz I&O - last 24 hours: Intake & Output 02/13/17 02/13/17 02/13/17 06:59 14:59 22:59 Intake Total 460 360 Balance 460 360 Med Orders - Current: Current Medications Acetaminophen (Tylenol) 650 mg PO Q4H PRN PRN Reason: Pain Last Admin: 02/13/17 09:08 Dose: 650 mg Folic Acid (Folic Acid) 1 mg PO DAILY [facility] Last Admin: 02/13/17 09:00 Dose: 1 mg Ibuprofen (Motrin) 800 mg PO Q8H PRN PRN Reason: Pain Last Admin: 02/12/17 13:14 Dose: 800 mg Lactulose (Chronulac) 5 gm PO DAILY [facility] Last Admin: 02/13/17 09:01 Dose: 5 gm Metoprolol Succinate (Toprol Xl) 200 mg PO DAILY [facility] Last Admin: 02/13/17 09:02 Dose: 200 mg Multivitamins/Minerals (Thera M Plus) 1 tab PO DAILY [facility] Last Admin: 02/13/17 09:00 Dose: 1 tab Potassium Chloride (Klor-Con M20) 20 meq PO BIDMEALS [facility] Last Admin: 02/13/17 17:27 Dose: 20 meq Discontinued Medications Diazepam (Valium) 0 mg IVPUSH ASDIRECTED PRN; Protocol PRN Reason: ETOH WITHDRAWAL Last Admin: 02/03/17 23:32 Dose: 20 mg Diazepam (Valium.) 0 mg PO ASDIRECTED PRN; Protocol PRN Reason: ETOH WITHDRAWAL Last Admin: 02/03/17 16:57 Dose: 10 mg Haloperidol Lactate (Haldol) 5 mg IVPUSH Q1H PRN PRN Reason: Agitation Last Admin: 02/07/17 05:14 Dose: 5 mg Sodium Chloride (Normal Saline) 1,000 mls @ 125 mls/hr IV ASDIRECTED [facility] Dextrose/Sodium Chloride (Dextrose 5%-Normal Saline) 1,000 mls @ 125 mls/hr IV ASDIRECTED [facility] Last Admin: 02/08/17 01:29 Dose: 125 mls/hr Potassium Chloride 20 meq/Lidocaine HCl 2 ml/ Sodium Chloride 112 mls @ 56 mls/ hr IV Q2H [facility] Stop: 02/04/17 13:59 Last Admin: 02/04/17 13:37 Dose: 56 mls/hr Magnesium Sulfate 2 gm/ Premix 50 mls @ 25 mls/hr IV Q6H [facility] Stop: 02/04/17 23:59 Last Admin: 02/04/17 22:28 Dose: 25 mls/hr Lorazepam (Ativan) 1 mg PO ONETIME ONE Stop: 02/03/17 11:13 Last Admin: 02/03/17 11:17 Dose: 1 mg Lorazepam (Ativan) Confirm Administered Dose 4 mg .ROUTE .STK-MED ONE Stop: 02/03/17 23:50 Last Admin: 02/04/17 00:08 Dose: Not Given Lorazepam (Ativan) 0.5 - 4 mg IVPUSH Q30M PRN; Protocol PRN Reason: Anxiety Last Admin: 02/07/17 04:22 Dose: 2 mg Potassium Chloride (Klor-Con M20) 20 meq PO BID [facility] Last Admin: 02/06/17 21:37 Dose: 20 meq Potassium Chloride (Klor-Con M20) 20 meq PO ONETIME ONE Stop: 02/08/17 15:01 Last Admin: 02/08/17 15:18 Dose: 20 meq Thiamine HCl (Vitamin B-1) 100 mg PO BID [facility] Stop: 02/09/17 21:01 Last Admin: 02/09/17 21:13 Dose: Not Given - Exam General: alert, oriented HEENT: Pupils equal, Pupils reactive, EOMI, Mucous membr. moist/pink Neck: supple Lungs: Clear to auscultation, Normal respiratory effort Cardiovascular: Regular Rate, Regular Rhythm Abdomen: bowel sounds present, soft, no tenderness, no distension Extremities: no edema Peripheral Pulses: 1+: radial (L), radial (R) - Problem List Review Problem List Initiated/Reviewed/Updated: Yes - Plan Plan:: Assessment/plan: #1. Alcoholism with delirium tremors. Is making slow improvement. He is feeding himself. He is able to bear weight and walks. His ammonium level was normal at 25. #2. Hypertension. He is good control of blood pressure at present time 111/81 #3. Obesity. Stable #4. Liver disfunction. An Ultrasound was done of the liver which showed fatty liver and gall stones probably chronic finding. #5. Shoulder pain. x-ray showed no fracture. Back x-rays neg. His potassium is improving but still in the normal limits at 3.8. He is unstable and will need a care facility until his strength improves. Will do blood work tomorrow.
[2017-02-13] MEDS: Ibuprofen 800 MG Tab PO PRN (22:36)
[2017-02-14] MEDS: Folic Acid 1 MG Tab PO SCH (08:19)
[2017-02-14] MEDS: Multivitamins with Iron/Calcium/Folic Acid/Minerals Tab PO SCH (08:21)
[2017-02-14] MEDS: Metoprolol Succinate 50 MG Tab.ER PO SCH (08:21)
[2017-02-14] MEDS: Potassium Chloride 20 MEQ Tab.ER PO SCH ×2 (08:22→17:30)
[2017-02-14] MEDS: Lactulose Soln 10 GM/15 ML 15 ML UD Cup PO SCH (08:53)
--- NOTE | 2017-02-14 14:10 | PCM.CONS ---
H&P History of Present Illness - General Admit Problem/Dx: He is to having a difficult time getting up and walking he is a two-person assist from bed to the chair. Today for the first time he asked who I was and said he had never seen me before. Mentally he is improving. Back Pain Score (Numeric/FACES): 4 Left Shoulder Pain Score (Numeric/FACES): 2 - Related Data Allergies/Adverse Reactions: Allergies Allergy/AdvReac Type Severity Reaction Status Date / Time No Known Allergies Allergy Verified 02/03/17 09:27 Home Medications: Home Meds Arginine [l-Arginine] 500 mg PO TID 02/16/14 [History] Melatonin 1 tab PO BEDTIME PRN 02/02/17 [History] Metoprolol Succinate 1 tab PO DAILY 02/02/17 [History] Past Medical History Cardiovascular History: Reports: Hypertension Musculoskeletal History: Reports: Fracture Psychiatric History: Reports: Addiction - Past Surgical History Musculoskeletal Surgical History: Reports: Other (see below) Other Musculoskeletal Surgeries/Procedures:: knee fracture surgery. Social & Family History - Tobacco Use Smoking Status *Q: Current Some Day Smoker Years of Tobacco use: 30 Packs/Tins Daily: 0.5 Second Hand Smoke Exposure: No - Caffeine Use Caffeine Use: Reports: None - Alcohol Use Days Per Week of Alcohol Use: 7 Number of Drinks Per Day: 10 Total Drinks Per Week: 70 Date of Last Drink: 02/02/17 Time of Last Drink: 12:00 - Recreational Drug Use Recreational Drug Use: Yes Drug Use in Last 12 Months: No Recreational Drug Type: Reports: Marijuana/Hashish Recreational Drug Use Frequency: Not Used In Over 6 Months H&P Review of Systems - Review of Systems: Review Of Systems: See Below General: Reports: weakness, fatigue HEENT: Reports: no symptoms Pulmonary: Reports: No Symptoms Cardiovascular: Reports: no symptoms Gastrointestinal: Reports: No symptoms Genitourinary: Reports: no symptoms Musculoskeletal: Reports: neck pain, shoulder pain, arm pain, back pain, hand pain, leg pain, muscle pain, muscle stiffness Skin: Reports: no symptoms Psychiatric: Reports: agitation, other Neurological: Reports: Tremors, Trouble Speaking, Difficulty Walking Hematologic/Lymphatic: Reports: no symptoms Immunologic: Reports: no symptoms Exam - Exam Exam: See Below - Vital Signs Vital Signs: Last Vital Signs Temp 97.9 F 02/14/17 08:00 Pulse 80 02/14/17 08:21 Resp 16 02/14/17 08:00 BP 110/75 02/14/17 08:21 Pulse Ox 98 02/14/17 08:00 Weight: 168 lb 11.516 oz - Exam General: alert, cooperative, other Neck: supple, trachea midline Back Exam: other Extremities: normal inspection Skin: warm, dry, intact Psychiatric: alert, agitated - Patient Data Lab Results last 24 hrs: Laboratory Results - last 24 hr 02/14/17 02/14/17 Range/Units 04:32 04:32 WBC 8.1 (4.5-11.0) K/uL RBC 3.55 L (4.30-5.90) M/uL Hgb 12.2 (12.0-15.0) g/dL Hct 36.1 L (40.0-54.0) % MCV 102 H (80-98) fL MCH 34 H (27-31) pg MCHC 34 (32-36) % Plt Count 368 (150-400) K/uL Neut % (Auto) 50 (36-66) % Lymph % (Auto) 31 (24-44) % George % (Auto) 17 H (2-6) % Eos % (Auto) 1 L (2-4) % Baso % (Auto) 2 H (0-1) % Sodium 141 (140-148) mmol/L Potassium 4.2 (3.6-5.2) mmol/L Chloride 103 (100-108) mmol/L Carbon Dioxide 30 (21-32) mmol/L Anion Gap 7.7 (5.0-14.0) mmol/L BUN 13 (7-18) mg/dL Creatinine 0.7 L (0.8-1.3) mg/dL Est Cr Clr Drug Dosing 122.14 mL/min Estimated GFR (MDRD) > 60 (>60) Glucose 101 (74-106) mg/dL Calcium 9.0 (8.5-10.1) mg/dL Total Bilirubin 1.7 H (0.2-1.0) mg/dL AST 217 H (15-37) U/L ALT 157 H (12-78) U/L Alkaline Phosphatase 156 H (46-116) U/L Total Protein 7.5 (6.4-8.2) g/dL Albumin 3.3 L (3.4-5.0) g/dL Globulin 4.2 H (2.3-3.5) g/dL Albumin/Globulin Ratio 0.8 L (1.2-2.2) Result Diagrams: 02/14/17 04:32 02/14/17 04:32 Consult PN Assessment/Plan Procedures: Procedures ASSAY OF CK (CPK) (02/02/17) ASSAY OF ETHANOL (02/16/14) COMPLETE CBC W/AUTO DIFF WBC (02/02/17) COMPREHEN METABOLIC PANEL (02/02/17) EMERGENCY DEPT VISIT (02/02/17) EMERGENCY DEPT VISIT (02/16/14) ROUTINE VENIPUNCTURE (02/02/17) THER/PROPH/DIAG IV INF ADDON (02/02/17) THER/PROPH/DIAG IV INF INIT (02/02/17) X-RAY EXAM THORAC SPINE 2VWS (02/02/17) (1) Shoulder pain, bilateral SNOMED Code(s): 63818801 Code(s): M25.511 - PAIN IN RIGHT SHOULDER; M25.512 - PAIN IN LEFT SHOULDER Current Visit: Yes Problem List Initiated/Reviewed/Updated: Yes Plan: I saw the patient today at the request of Dr. Bryant. He has some family in his room. He's been here since the secondary to alcohol withdrawal. During the examination he is still obviously going through delirium tremens. He states that he has had back pain for years. He has had knee pain as well as bilateral shoulder pain and neck pain. Musculoskeletal Physical Examination Constitutional: Vital signs including height and weight were reviewed and documented on the patient's chart. General appearance demonstrates normal development and body habitus. HEENT: Normocephalic, atraumatic. Neurological: The patient is alert and appears mildly agitated. Gait and station are antalgic. Intact sensation is noted. Coordination and balance are decreased. Neck: Inspection/palpation: Normal symmetry and appearance without tenderness. Range of motion: Decreased extension and rotation. Stability: Stable through range of motion. Strength: Normal muscle strength and tone. Skin: Normal skin tone without rashes or lesions. Lumbar Spine: Inspection/palpation: Normal symmetry and appearance without tenderness. Range of motion: Decreased extension.. Stability: Stable through range of motion. Strength: Normal muscle strength and tone. Skin: Normal skin tone without rashes or lesions. Right upper extremity: Inspection/palpation: Normal symmetry and appearance without tenderness. Range of motion: Full range of motion without pain. Stability: Stable through range of motion. Strength: Normal muscle strength and tone. Skin: Normal skin tone without rashes or lesions. Left upper extremity: Inspection/palpation: Normal symmetry and appearance without tenderness. Range of motion: Full range of motion without pain. Stability: Stable through range of motion. Strength: Normal muscle strength and tone. Skin: Normal skin tone without rashes or lesions. Imaging: Multiple views of the thoracic spine show no abnormality. Multiple views of the right shoulder show no abnormality. Plan: To get a more accurate picture of the patient's condition I believe that it is important for him to fully recover from the alcohol withdrawal. I do not see anything during the examination today which makes me suspect that he has a compressive neurologic injury. I would certainly recommend that after he recovers he undergo physical therapy for multiple body systems. It may be beneficial for him to see a neurologist to see if there is any long lasting damage from alcohol abuse such as Michael E. Korsakoff syndrome. I believe that he would also benefit from a dietary consultation as well. 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 Although I do not see evidence of ankylosing spondylitis order Scheuermann's kyphosis, he may be on the spectrum of a rheumatologic syndrome. A rheumatology consult may be considered in the future after he has recovered. Requesting Provider: Grayson Bryant MD Date Consult Requested: 02/14/17 Patient History Reviewed: Yes Admission H&P Reviewed: Yes
[2017-02-14] MEDS: Acetaminophen 325 MG Tab PO PRN (17:33)
--- NOTE | 2017-02-14 18:46 | PCM.PN ---
- General Info Date of Service: 02/14/17 Subjective Update: He is walking better today but unsure of his walking. He is unable to climb steps so he is inappropriate to go to [place] where he must ambulate better than what he is at the present time. He does need rehabilitation for his alcohol consumption as if he continues to drink he may not make it through the next episode of alcohol consumption. He is complaining of pain in his left knee and his neck and his shoulders. - Review of Systems General: Reports: Weakness HEENT: Reports: no symptoms Pulmonary: Reports: no symptoms Cardiovascular: Reports: No Symptoms Gastrointestinal: Reports: No symptoms Genitourinary: Reports: no symptoms Musculoskeletal: Reports: shoulder pain, back pain, other (cervical neck pain. He also has pain from a past injury of his left ankle.) Neurological: Reports: Difficulty Walking, Weakness, Gait Disturbance - Patient Data Vitals - most recent: Last Vital Signs Temp 98.9 F 02/14/17 14:08 Pulse 70 02/14/17 14:08 Resp 16 02/14/17 14:08 BP 123/91 H 02/14/17 14:08 Pulse Ox 95 02/14/17 14:08 Weight - most recent: 168 lb 11.516 oz I&O - last 24 hours: Intake & Output 02/14/17 02/14/17 02/14/17 06:59 14:59 22:59 Intake Total 60 600 600 Balance 60 600 600 Lab Results last 24 hrs: Laboratory Results - last 24 hr 02/14/17 02/14/17 Range/Units 04:32 04:32 WBC 8.1 (4.5-11.0) K/uL RBC 3.55 L (4.30-5.90) M/uL Hgb 12.2 (12.0-15.0) g/dL Hct 36.1 L (40.0-54.0) % MCV 102 H (80-98) fL MCH 34 H (27-31) pg MCHC 34 (32-36) % Plt Count 368 (150-400) K/uL Neut % (Auto) 50 (36-66) % Lymph % (Auto) 31 (24-44) % Swain % (Auto) 17 H (2-6) % Eos % (Auto) 1 L (2-4) % Baso % (Auto) 2 H (0-1) % Sodium 141 (140-148) mmol/L Potassium 4.2 (3.6-5.2) mmol/L Chloride 103 (100-108) mmol/L Carbon Dioxide 30 (21-32) mmol/L Anion Gap 7.7 (5.0-14.0) mmol/L BUN 13 (7-18) mg/dL Creatinine 0.7 L (0.8-1.3) mg/dL Est Cr Clr Drug Dosing 122.14 mL/min Estimated GFR (MDRD) > 60 (>60) Glucose 101 (74-106) mg/dL Calcium 9.0 (8.5-10.1) mg/dL Total Bilirubin 1.7 H (0.2-1.0) mg/dL AST 217 H (15-37) U/L ALT 157 H (12-78) U/L Alkaline Phosphatase 156 H (46-116) U/L Total Protein 7.5 (6.4-8.2) g/dL Albumin 3.3 L (3.4-5.0) g/dL Globulin 4.2 H (2.3-3.5) g/dL Albumin/Globulin Ratio 0.8 L (1.2-2.2) Med Orders - Current: Current Medications Acetaminophen (Tylenol) 650 mg PO Q4H PRN PRN Reason: Pain Last Admin: 02/14/17 17:33 Dose: 650 mg Folic Acid (Folic Acid) 1 mg PO DAILY [facility] Last Admin: 02/14/17 08:19 Dose: 1 mg Ibuprofen (Motrin) 800 mg PO Q8H PRN PRN Reason: Pain Last Admin: 02/13/17 22:36 Dose: 800 mg Lactulose (Chronulac) 5 gm PO DAILY [facility] Last Admin: 02/14/17 08:53 Dose: 5 gm Metoprolol Succinate (Toprol Xl) 200 mg PO DAILY [facility] Last Admin: 02/14/17 08:21 Dose: 200 mg Multivitamins/Minerals (Thera M Plus) 1 tab PO DAILY [facility] Last Admin: 02/14/17 08:21 Dose: 1 tab Potassium Chloride (Klor-Con M20) 20 meq PO BIDMEALS [facility] Last Admin: 02/14/17 17:30 Dose: 20 meq Discontinued Medications Diazepam (Valium) 0 mg IVPUSH ASDIRECTED PRN; Protocol PRN Reason: ETOH WITHDRAWAL Last Admin: 02/03/17 23:32 Dose: 20 mg Diazepam (Valium.) 0 mg PO ASDIRECTED PRN; Protocol PRN Reason: ETOH WITHDRAWAL Last Admin: 02/03/17 16:57 Dose: 10 mg Haloperidol Lactate (Haldol) 5 mg IVPUSH Q1H PRN PRN Reason: Agitation Last Admin: 02/07/17 05:14 Dose: 5 mg Sodium Chloride (Normal Saline) 1,000 mls @ 125 mls/hr IV ASDIRECTED [facility] Dextrose/Sodium Chloride (Dextrose 5%-Normal Saline) 1,000 mls @ 125 mls/hr IV ASDIRECTED [facility] Last Admin: 02/08/17 01:29 Dose: 125 mls/hr Potassium Chloride 20 meq/Lidocaine HCl 2 ml/ Sodium Chloride 112 mls @ 56 mls/ hr IV Q2H [facility] Stop: 02/04/17 13:59 Last Admin: 02/04/17 13:37 Dose: 56 mls/hr Magnesium Sulfate 2 gm/ Premix 50 mls @ 25 mls/hr IV Q6H [facility] Stop: 02/04/17 23:59 Last Admin: 02/04/17 22:28 Dose: 25 mls/hr Lorazepam (Ativan) 1 mg PO ONETIME ONE Stop: 02/03/17 11:13 Last Admin: 02/03/17 11:17 Dose: 1 mg Lorazepam (Ativan) Confirm Administered Dose 4 mg .ROUTE .STK-MED ONE Stop: 02/03/17 23:50 Last Admin: 02/04/17 00:08 Dose: Not Given Lorazepam (Ativan) 0.5 - 4 mg IVPUSH Q30M PRN; Protocol PRN Reason: Anxiety Last Admin: 02/07/17 04:22 Dose: 2 mg Potassium Chloride (Klor-Con M20) 20 meq PO BID [facility] Last Admin: 02/06/17 21:37 Dose: 20 meq Potassium Chloride (Klor-Con M20) 20 meq PO ONETIME ONE Stop: 02/08/17 15:01 Last Admin: 02/08/17 15:18 Dose: 20 meq Thiamine HCl (Vitamin B-1) 100 mg PO BID [facility] Stop: 02/09/17 21:01 Last Admin: 02/09/17 21:13 Dose: Not Given - Exam General: oriented, cooperative, mild distress HEENT: Pupils equal, Pupils reactive, EOMI, Mucous membr. moist/pink Neck: other (limitation range of motion of his neck.) Lungs: Clear to auscultation, Normal respiratory effort Cardiovascular: Regular Rate, Regular Rhythm Back Exam: other (There is pain to palpation in the lower and mid back area.) Extremities: no edema Psy/Mental Status: labile mood, anxious - Problem List Review Problem List Initiated/Reviewed/Updated: Yes - My Orders Last 24 Hours: My Active Orders 02/14/17 13:07 Consult to Physician [CONS] Routine 02/14/17 13:08 Notify Provider Consults [RC] ASDIRECTED - Plan Plan:: Assessment/plan: #1. Alcoholism with delirium tremors. Is making slow improvement. He is feeding himself. He is able to bear weight and walks. His ammonium level is normal. #2. Hypertension. He is good control of blood pressure at present time 123/91 #3. Obesity. Stable #4. Liver disfunction. An Ultrasound was done of the liver which showed fatty liver and gall stones probably chronic finding. #5. Shoulder pain. x-ray showed no fracture. Back x-rays neg. He was seen by the orthopedist Dr. Goyal and nothing would be done at the present time and no acute pathology is evident. I did review his consult. He'll be going to a care facility in [place] until he develops more strength.
[2017-02-14] MEDS: Ibuprofen 800 MG Tab PO PRN (21:35)
--- NOTE | 2017-02-15 08:11 | PCM.PN ---
- General Info Date of Service: 02/15/17 Functional Status: Reports: pain controlled - Review of Systems General: Reports: Weakness HEENT: Reports: no symptoms Pulmonary: Reports: no symptoms Cardiovascular: Reports: No Symptoms Gastrointestinal: Reports: No symptoms Genitourinary: Reports: no symptoms Musculoskeletal: Reports: joint pain Skin: Reports: no symptoms Neurological: Reports: Difficulty Walking, Weakness, Gait Disturbance Psychiatric: Reports: depression - Patient Data Vitals - most recent: Last Vital Signs Temp 99.7 F 02/14/17 22:15 Pulse 64 02/14/17 22:15 Resp 16 02/14/17 22:15 BP 97/76 02/14/17 22:15 Pulse Ox 97 02/14/17 22:15 Weight - most recent: 168 lb 4.8 oz I&O - last 24 hours: Intake & Output 02/14/17 02/15/17 02/15/17 22:59 06:59 14:59 Intake Total 600 Balance 600 Med Orders - Current: Current Medications Acetaminophen (Tylenol) 650 mg PO Q4H PRN PRN Reason: Pain Last Admin: 02/14/17 17:33 Dose: 650 mg Folic Acid (Folic Acid) 1 mg PO DAILY [facility] Last Admin: 02/14/17 08:19 Dose: 1 mg Ibuprofen (Motrin) 800 mg PO Q8H PRN PRN Reason: Pain Last Admin: 02/14/17 21:35 Dose: 800 mg Lactulose (Chronulac) 5 gm PO DAILY [facility] Last Admin: 02/14/17 08:53 Dose: 5 gm Metoprolol Succinate (Toprol Xl) 200 mg PO DAILY [facility] Last Admin: 02/14/17 08:21 Dose: 200 mg Multivitamins/Minerals (Thera M Plus) 1 tab PO DAILY [facility] Last Admin: 02/14/17 08:21 Dose: 1 tab Potassium Chloride (Klor-Con M20) 20 meq PO BIDMEALS [facility] Last Admin: 02/14/17 17:30 Dose: 20 meq Discontinued Medications Diazepam (Valium) 0 mg IVPUSH ASDIRECTED PRN; Protocol PRN Reason: ETOH WITHDRAWAL Last Admin: 02/03/17 23:32 Dose: 20 mg Diazepam (Valium.) 0 mg PO ASDIRECTED PRN; Protocol PRN Reason: ETOH WITHDRAWAL Last Admin: 02/03/17 16:57 Dose: 10 mg Haloperidol Lactate (Haldol) 5 mg IVPUSH Q1H PRN PRN Reason: Agitation Last Admin: 02/07/17 05:14 Dose: 5 mg Sodium Chloride (Normal Saline) 1,000 mls @ 125 mls/hr IV ASDIRECTED [facility] Dextrose/Sodium Chloride (Dextrose 5%-Normal Saline) 1,000 mls @ 125 mls/hr IV ASDIRECTED [facility] Last Admin: 02/08/17 01:29 Dose: 125 mls/hr Potassium Chloride 20 meq/Lidocaine HCl 2 ml/ Sodium Chloride 112 mls @ 56 mls/ hr IV Q2H [facility] Stop: 02/04/17 13:59 Last Admin: 02/04/17 13:37 Dose: 56 mls/hr Magnesium Sulfate 2 gm/ Premix 50 mls @ 25 mls/hr IV Q6H [facility] Stop: 02/04/17 23:59 Last Admin: 02/04/17 22:28 Dose: 25 mls/hr Lorazepam (Ativan) 1 mg PO ONETIME ONE Stop: 02/03/17 11:13 Last Admin: 02/03/17 11:17 Dose: 1 mg Lorazepam (Ativan) Confirm Administered Dose 4 mg .ROUTE .STK-MED ONE Stop: 02/03/17 23:50 Last Admin: 02/04/17 00:08 Dose: Not Given Lorazepam (Ativan) 0.5 - 4 mg IVPUSH Q30M PRN; Protocol PRN Reason: Anxiety Last Admin: 02/07/17 04:22 Dose: 2 mg Potassium Chloride (Klor-Con M20) 20 meq PO BID [facility] Last Admin: 02/06/17 21:37 Dose: 20 meq Potassium Chloride (Klor-Con M20) 20 meq PO ONETIME ONE Stop: 02/08/17 15:01 Last Admin: 02/08/17 15:18 Dose: 20 meq Thiamine HCl (Vitamin B-1) 100 mg PO BID [facility] Stop: 02/09/17 21:01 Last Admin: 02/09/17 21:13 Dose: Not Given - Exam General: oriented, cooperative, mild distress HEENT: Pupils equal, Pupils reactive, EOMI, Mucous membr. moist/pink Neck: supple Lungs: Clear to auscultation, Normal respiratory effort Cardiovascular: Regular Rate Abdomen: bowel sounds present, soft Peripheral Pulses: 1+: radial (L), radial (R) Skin: warm, dry, intact Psy/Mental Status: anxious - Problem List Review Problem List Initiated/Reviewed/Updated: Yes - My Orders Last 24 Hours: My Active Orders 02/14/17 13:07 Consult to Physician [CONS] Routine 02/14/17 13:08 Notify Provider Consults [RC] ASDIRECTED 02/14/17 18:53 Ready for Discharge [RC] PER UNIT ROUTINE - Plan Plan:: Assessment/plan: #1. Alcoholism with delirium tremors. Is making slow improvement. He still cannot function independently alone and is a care facility to give him assistance with his activities of daily needs. #2. Hypertension. He is good control of blood pressure stable at present. #3. Obesity. Stable #4. Liver disfunction. An Ultrasound was done of the liver which showed fatty liver and gall stones probably chronic finding. Of concern is that his liver functions have been going up that she is needing more and am concerned about possible gallbladder disease. He should not be taking any Tylenol and probably have a low protein diet and need to reinvestigate the gallbladder for possible chronic cholecystitis. Surgery would not be an option at the present time until he makes more progress after his delirium tremors secondary to alcohol. In #5. Shoulder pain. x-ray showed no fracture. Back x-rays neg. He was seen by the orthopedist Dr. Goyal and nothing would be done at the present time and no acute pathology is evident. I did review his consult. He'll be going to a care facility in [place] until he develops more strength.
--- NOTE | 2017-02-15 08:17 | PCM.DCSUM1 ---
Discharge Summary - Hospital Course Brief History: Arnaldo was admitted after being in [place] and was unable to control his delirium tremors and was brought into the emergency room and then admitted. He was unable to verbalize and was unable to ambulate without 2 person assist at minimum. He has a long history of alcoholic abuse and delirium tremors and hepatic dysfunction in the past. - Discharge Data Discharge Date: 02/15/17 Discharge Disposition: DC/Tfer to [facility] Condition: Fair - Patient Summary/Data Consults: Consultations 02/10/17 16:36 PT Evaluation and Treatment [CONS] Routine Please Evaluate and Treat. PT Reason for Consult: Strengthening Pending Discharge: Yes This query below is only for informational purposes and is not editable. Admission Diagnosis/Problem: Alcohol withdrawal delirium 02/11/17 10:18 Consult to Physical Therapy [PT Evaluation and Treatment] [CONS] Routine Please Evaluate and Treat. PT Reason for Consult: Strengthening Pending Discharge: Yes Discharge Disposition: [facility] This query below is only for informational purposes and is not editable. Admission Diagnosis/Problem: Alcohol withdrawal delirium 02/14/17 13:07 Consult to Physician [CONS] Routine Consulting Provider: Mike Lazo Courtesy Call Completed to Consulting Physician: Yes Reason for Consult: left ankle, rt knee, back and neck pain Person Notified: gabino lazo Date Notified: 02/14/17 Time Notified: 13:08 Hospital Course: He had an extended stay here in the hospital. For the first week he is totally in delirium tremors and received Valium and Ativan and finally Haldol in order to control his delirium tremors. He is unable to feed himself or ambulate until just the last 4-5 days of his hospital stay. He did have complaints of an old injury to his right ankle and also had multiple joint pains including his neck as well as his shoulders. He was seen by the orthopedist Dr. Justice Lazo and no surgery was recommended. Before he came in he was laying on a cement floor and had a contusion to his mid thoracic spine with which appeared to be a small hematoma. This did resolve while in the hospital and x-rays did not show any acute pathology. He did have an ultrasound of the liver which showed fatty infiltration and possible cholecystitis appeared to be chronic. Before discharge his liver functions did elevate which is of concern. This needs to be evaluated for possible chronic cholecystitis and watch liver functions as well. Any medications that are broken down by the liver should be avoided. He should have blood work for liver functions in a week or sooner if needed. He'll be going to a care facility until he is more strength. - Patient Instructions Diet: Heart Healthy Diet Activity: As Tolerated Driving: Do Not Drive Showering/Bathing: May Shower Other/Special Instructions: outpatient PT/OT 3 times per week through [facility] - Discharge Plan Home Medications: Home Meds Melatonin 1 tab PO BEDTIME PRN 02/02/17 [History] Metoprolol Succinate 1 tab PO DAILY 02/02/17 [History] Referrals: PCP,None [Primary Care Provider] - - Discharge Summary/Plan Comment DC Time >30 min.: Yes - Patient Data Vitals - Most Recent: Last Vital Signs Temp 99.7 F 02/14/17 22:15 Pulse 64 02/14/17 22:15 Resp 16 02/14/17 22:15 BP 97/76 02/14/17 22:15 Pulse Ox 97 02/14/17 22:15 Weight - Most Recent: 168 lb 4.8 oz I&O - Last 24 hours: Intake & Output 02/14/17 02/15/17 02/15/17 22:59 06:59 14:59 Intake Total 600 Balance 600 Med Orders - Current: Current Medications Acetaminophen (Tylenol) 650 mg PO Q4H PRN PRN Reason: Pain Last Admin: 02/14/17 17:33 Dose: 650 mg Folic Acid (Folic Acid) 1 mg PO DAILY [facility] Last Admin: 02/14/17 08:19 Dose: 1 mg Ibuprofen (Motrin) 800 mg PO Q8H PRN PRN Reason: Pain Last Admin: 02/14/17 21:35 Dose: 800 mg Lactulose (Chronulac) 5 gm PO DAILY [facility] Last Admin: 02/14/17 08:53 Dose: 5 gm Metoprolol Succinate (Toprol Xl) 200 mg PO DAILY [facility] Last Admin: 02/14/17 08:21 Dose: 200 mg Multivitamins/Minerals (Thera M Plus) 1 tab PO DAILY [facility] Last Admin: 02/14/17 08:21 Dose: 1 tab Potassium Chloride (Klor-Con M20) 20 meq PO BIDMEALS [facility] Last Admin: 02/14/17 17:30 Dose: 20 meq Discontinued Medications Diazepam (Valium) 0 mg IVPUSH ASDIRECTED PRN; Protocol PRN Reason: ETOH WITHDRAWAL Last Admin: 02/03/17 23:32 Dose: 20 mg Diazepam (Valium.) 0 mg PO ASDIRECTED PRN; Protocol PRN Reason: ETOH WITHDRAWAL Last Admin: 02/03/17 16:57 Dose: 10 mg Haloperidol Lactate (Haldol) 5 mg IVPUSH Q1H PRN PRN Reason: Agitation Last Admin: 02/07/17 05:14 Dose: 5 mg Sodium Chloride (Normal Saline) 1,000 mls @ 125 mls/hr IV ASDIRECTED [facility] Dextrose/Sodium Chloride (Dextrose 5%-Normal Saline) 1,000 mls @ 125 mls/hr IV ASDIRECTED [facility] Last Admin: 02/08/17 01:29 Dose: 125 mls/hr Potassium Chloride 20 meq/Lidocaine HCl 2 ml/ Sodium Chloride 112 mls @ 56 mls/ hr IV Q2H [facility] Stop: 02/04/17 13:59 Last Admin: 02/04/17 13:37 Dose: 56 mls/hr Magnesium Sulfate 2 gm/ Premix 50 mls @ 25 mls/hr IV Q6H [facility] Stop: 02/04/17 23:59 Last Admin: 02/04/17 22:28 Dose: 25 mls/hr Lorazepam (Ativan) 1 mg PO ONETIME ONE Stop: 02/03/17 11:13 Last Admin: 02/03/17 11:17 Dose: 1 mg Lorazepam (Ativan) Confirm Administered Dose 4 mg .ROUTE .STK-MED ONE Stop: 02/03/17 23:50 Last Admin: 02/04/17 00:08 Dose: Not Given Lorazepam (Ativan) 0.5 - 4 mg IVPUSH Q30M PRN; Protocol PRN Reason: Anxiety Last Admin: 02/07/17 04:22 Dose: 2 mg Potassium Chloride (Klor-Con M20) 20 meq PO BID [facility] Last Admin: 02/06/17 21:37 Dose: 20 meq Potassium Chloride (Klor-Con M20) 20 meq PO ONETIME ONE Stop: 02/08/17 15:01 Last Admin: 02/08/17 15:18 Dose: 20 meq Thiamine HCl (Vitamin B-1) 100 mg PO BID [facility] Stop: 02/09/17 21:01 Last Admin: 02/09/17 21:13 Dose: Not Given *Q Meaningful Use (DIS) - VTE *Q VTE Criteria *Q: - Stroke *Q Stroke Criteria *Q: - AMI *Q AMI Criteria *Q:
[2017-02-15] MEDS: Potassium Chloride 20 MEQ Tab.ER PO SCH (08:26)
[2017-02-15] MEDS: Multivitamins with Iron/Calcium/Folic Acid/Minerals Tab PO SCH (08:27)
[2017-02-15] MEDS: Folic Acid 1 MG Tab PO SCH (08:27)
[2017-02-15] MEDS: Lactulose Soln 10 GM/15 ML 15 ML UD Cup PO SCH (08:27)
[2017-02-15] MEDS: Metoprolol Succinate 50 MG Tab.ER PO SCH (08:30)
[2017-02-15 08:31] VITALS: BP 118/60
== END 2017-02-15 08:45 | DRG 775 ==
LOC: JP.ED 09:02 → JP.ICU 15:05 → JP.MS 02-05 10:14 → JP.ICU 02-05 10:17 → JP.MS 02-05 10:17
PROVIDERS: ADMIT Internal Medicine; ATTEND Internal Medicine
DX: F10.231 Alcohol dependence with withdrawal delirium (principal); Y90.0 Blood alcohol level of less than 20 mg/100 ml; I10 Essential (primary) hypertension; F17.210 Nicotine dependence, cigarettes, uncomplicated; E66.9 Obesity, unspecified; M40.204 Unspecified kyphosis, thoracic region; E87.6 Hypokalemia; K70.0 Alcoholic fatty liver; K80.10 Calculus of gallbladder with chronic cholecystitis without obstruction; M25.512 Pain in left shoulder; M25.511 Pain in right shoulder; M54.2 Cervicalgia; M25.562 Pain in left knee
CPT/HCPCS: 36415; 730302650; 73030-50; 76705; 76705-26; 80048; 80053; 82140; 83605; 83690; 83735; 85025; 85027; 97110-GP; 97116-GP; 97162-GP; 97530-GP; 99285; A9270-GY; G0480; J1630; J2060; J3360; J3475; J3480; J7030

== ENCOUNTER 2017-09-20 03:11 | Emergency (ER) | payer MEDICAID ==
--- NOTE | 2017-09-20 04:00 | EDM.PDOC ---
ED HPI GENERAL MEDICAL PROBLEM - General Chief Complaint: Drug or Alcohol Abuse Stated Complaint: MEDICAL VIA [facility] Time Seen by Provider: 09/20/17 03:45 Source of Information: Reports: Patient, RN Notes Reviewed History Limitations: Reports: No Limitations - History of Present Illness INITIAL COMMENTS - FREE TEXT/NARRATIVE: 52-year-old gentleman presents emergency department today via EMS services for a loss of consciousness and facial trauma he does admit to consumption of alcohol he does not recall any events, he awoke at home fairly large laceration on his forehead bright red blood and dried blood on his head no recollection of any events. At this time he denies any pain no difficulty breathing nausea or vomiting - Related Data Allergies Allergy/AdvReac Type Severity Reaction Status Date / Time No Known Allergies Allergy Verified 09/20/17 03:23 Home Meds: Home Meds Melatonin 1 tab PO BEDTIME PRN 02/02/17 [History] Metoprolol Succinate 1 tab PO DAILY 02/02/17 [History] Baclofen [Baclofen] 10 mg PO TID PRN 09/20/17 [History] Past Medical History Cardiovascular History: Reports: Hypertension Genitourinary History: Reports: BPH Musculoskeletal History: Reports: Back Pain, Chronic, Fracture Neurological History: Reports: Seizure Other Neuro History: withdrawl Psychiatric History: Reports: Addiction, Depression - Past Surgical History Musculoskeletal Surgical History: Reports: Other (See Below) Other Musculoskeletal Surgeries/Procedures:: right leg surgery Social & Family History - Tobacco Use Smoking Status *Q: Current Every Day Smoker Years of Tobacco use: 30 Packs/Tins Daily: 0.5 Second Hand Smoke Exposure: No - Caffeine Use Caffeine Use: Reports: Tea - Alcohol Use Days Per Week of Alcohol Use: 7 Number of Drinks Per Day: 6 Total Drinks Per Week: 42 Date of Last Drink: 09/20/17 Time of Last Drink: 01:00 - Recreational Drug Use Recreational Drug Use: Yes Drug Use in Last 12 Months: No Recreational Drug Type: Reports: Marijuana/Hashish Recreational Drug Use Frequency: Not Used In Over 6 Months ED ROS GENERAL - Review of Systems Review Of Systems: See Below Constitutional: Reports: No Symptoms HEENT: Reports: No Symptoms Respiratory: Reports: No Symptoms Cardiovascular: Reports: No Symptoms GI/Abdominal: Reports: No Symptoms : Reports: No Symptoms Musculoskeletal: Reports: No Symptoms Skin: Reports: Wound Neurological: Reports: No Symptoms Psychiatric: Reports: Cravings (Alcohol) ED EXAM, HEAD INJURY - Physical Exam Exam: See Below Text/Narrative:: Primary survey GCS of 15 airway is open patent clear lungs are clear to auscultation bilaterally, cardiovascular demonstrates regular rate and rhythm S1 and S2 Secondary survey General: Male, intoxicated, not in any distress GCS of 15, alert and oriented x3 HEENT: head is large gash appreciated above the left eye completely through the dermis active bleeding with dried blood all over the face head and neck normocephalic, eyes pupils equal round reactive to light, sclera clear no conjunctivitis appreciated, extraocular eye movements intact. Ears tympanic membranes clear and ortiz landmarks and light reflex are present bilaterally canals are clear. Nose no septal deviation, nares are clear, no blood present. Mouth mucosa is moist and pink no erythema or exudate noted in soft palate, tongue is midline uvula is midline, dentition is intact. Neck: Supple no thyromegaly no tracheal deviation. No tenderness to palpation full range of motion without pain Nodes: Cervical nodes subclavicular nodes nontender no palpable lymphadenopathy noted. Lungs: clear to auscultation bilaterally with symmetrical respirations, no adventitious noise appreciated. CV: Regular rate and rhythm S1 and S2 appreciated no murmurs rubs or gallops noted. Abdomen: Soft, nontender, no palpable masses or organomegaly appreciated, no distention no guarding bowel sounds are present, . Neuro: Cranial nerves II through XII grossly intact Skin: Warm and dry, intact no bruising noted other than the lesion described on the face Extremities: No lower extremity edema appreciated, pedal pulse is +2. No tenderness at the wrist, elbows, shoulder bilaterally, pelvic rock's is stable, no tenderness at the knees or ankles bilaterally. Examination of the back there is no tenderness examination of the back ED LACERATION/WOUND & ALLISON PROC - Laceration/Wound Repair Head Lac/wound length in cm: 3 Appearance: Subcutaneous Distal NVT: Neuro & Vascular Intact, No Tendon Injury Anesthetic Type: Local Local Anesthesia - Lidocaine (Xylocaine): 1% with EPI Local Anesthetic Volume: 2cc Skin Prep: Saline Saline irrigation (cc's): 60 Exploration/Debridement/Repair: Wound Explored, In a Bloodless Field, Explored to Base Closed with: Sutures Suture Size: other (5-0) # of Sutures: 6 Suture Type: Nylon, Interrupted Suture Size: 4-0 # of Sutures: 1 Repaired with: Vicryl Sterile Dressing Applied: Nurse Tetanus Status Addressed: Yes Complications: No Course - Vital Signs Last Recorded V/S: Last Vital Signs Temp 98.0 F 09/20/17 03:15 Pulse 86 09/20/17 05:44 Resp 18 09/20/17 05:44 BP 139/85 09/20/17 05:44 Pulse Ox 97 09/20/17 05:44 - Orders/Labs/Meds Orders: Active Orders 24 hr Category Date Time Status Peripheral IV Care [RC] . DIRECTED Care 09/20/17 05:09 Ordered Vaccines to be Administered [RC] PER UNIT ROUTINE Care 09/20/17 05:39 Ordered Cervical Spine wo Cont [CT] Stat Exams 09/20/17 03:52 Taken Head wo Cont [CT] Stat Exams 09/20/17 03:52 Taken Max Facial Sinus wo Cont [CT] Stat Exams 09/20/17 03:52 Taken Sodium Chloride 0.9% [Saline Flush] Med 09/20/17 05:09 Ordered 10 ml FLUSH ASDIRECTED PRN Peripheral IV Insertion Adult [OM.PC] Urgent Oth 09/20/17 05:09 Ordered Medication Orders Sodium Chloride (Saline Flush) 10 ml FLUSH ASDIRECTED PRN PRN Reason: Keep Vein Open Labs: Laboratory Tests 09/20/17 09/20/17 09/20/17 Range/Units 04:04 04:04 04:04 WBC 5.2 (4.5-11.0) K/uL RBC 4.16 L (4.30-5.90) M/uL Hgb 13.5 (12.0-15.0) g/dL Hct 38.8 L (40.0-54.0) % MCV 93 (80-98) fL MCH 33 H (27-31) pg MCHC 35 (32-36) % Plt Count 162 (150-400) K/uL Neut % (Auto) 62 (36-66) % Lymph % (Auto) 24 (24-44) % [place] % (Auto) 11 H (2-6) % Eos % (Auto) 2 (2-4) % Baso % (Auto) 1 (0-1) % Sodium 142 (140-148) mmol/L Potassium 3.7 (3.6-5.2) mmol/L Chloride 103 (100-108) mmol/L Carbon Dioxide 27 (21-32) mmol/L Anion Gap 12.2 (5.0-14.0) mmol/L BUN 9 (7-18) mg/dL Creatinine 0.8 (0.8-1.3) mg/dL Est Cr Clr Drug Dosing 106.88 mL/min Estimated GFR (MDRD) > 60 (>60) Glucose 121 H (74-106) mg/dL Calcium 8.8 (8.5-10.1) mg/dL Ethyl Alcohol 320 mg/dL Meds: Medications Generic Name Dose Route Start Last Admin Trade Name Freq PRN Reason Stop Dose Admin Sodium Chloride 10 ml 09/20/17 05:09 Saline Flush FLUSH ASDIRECTED PRN Keep Vein Open Discontinued Medications Generic Name Dose Route Start Last Admin Trade Name Freq PRN Reason Stop Dose Admin Bacitracin 1 dose 09/20/17 04:06 Bacitracin Oint 1 Gm TOP 09/20/17 04:07 ONETIME ONE Diphtheria/Tetanus/Acell Pertussis 0.5 ml 09/20/17 05:39 09/20/17 05:46 Adacel IM 09/20/17 05:40 0.5 ml .ONCE ONE Administration Hydromorphone HCl 0.5 mg 09/20/17 05:58 Dilaudid IVPUSH 09/20/17 05:59 ONETIME ONE Lidocaine/Epinephrine 20 ml 09/20/17 04:06 09/20/17 05:13 Xylocaine 1% With Epinephrine 1:100,000 SUBCUT 09/20/17 04:07 3 ml NOW STA Administration Departure - Departure Time of Disposition: 06:02 Disposition: DC/Tfer to Acute Hospital 02 Condition: Fair Clinical Impression: Fracture of C5-C7 vertebra, closed - Discharge Information Referrals: PCP,None [Primary Care Provider] - Forms: ED Department Discharge - My Orders Last 24 Hours: My Active Orders 09/20/17 03:52 Cervical Spine wo Cont [CT] Stat Head wo Cont [CT] Stat Max Facial Sinus wo Cont [CT] Stat 09/20/17 05:09 Peripheral IV Care [RC] . DIRECTED Sodium Chloride 0.9% [Saline Flush] 10 ml FLUSH ASDIRECTED PRN Peripheral IV Insertion Adult [OM.PC] Urgent 09/20/17 05:39 Vaccines to be Administered [RC] PER UNIT ROUTINE - Assessment/Plan Last 24 Hours: My Active Orders 09/20/17 03:52 Cervical Spine wo Cont [CT] Stat Head wo Cont [CT] Stat Max Facial Sinus wo Cont [CT] Stat 09/20/17 05:09 Peripheral IV Care [RC] . DIRECTED Sodium Chloride 0.9% [Saline Flush] 10 ml FLUSH ASDIRECTED PRN Peripheral IV Insertion Adult [OM.PC] Urgent 09/20/17 05:39 Vaccines to be Administered [RC] PER UNIT ROUTINE Plan: Assessment Acuity = acute Site and laterality = fracture C5-C6 , 3 cm laceration to forehead above the left eye complicated patient with history of alcohol abuse and dependence unknown mechanism of injury Etiology = trauma unknown mechanism Manifestations = none Location of injury = Home Lab values = CBC, BMP unremarkable EtOH is 320 CT scan of the head is negative CT scan of the maxillofacial bones negative for any fracture CT scan of the neck shows a hyperextension injury with fractures of C5-C6 Plan Called and discussed the case with Dr. Weaver emergency room physician [facility] kindly accepted the patient in transport he will be transported via EMS ground Patient was in agreement with the plan all questions were answered, . This note was dictated using [employer] voice recognition software please call with any questions.
[2017-09-20] MEDS ORDERED: Bacitracin Oint 1 GM U/D Packet TOP ONE (04:06)
[2017-09-20] MEDS ORDERED: Lidocaine 1% with EPINEPHrine 1:100,000 50 ML MDV SUBCUT STA (04:06)
[2017-09-20] MEDS ORDERED: Sodium Chloride 0.9% 10 ML Syringe FLUSH PRN (05:09)
[2017-09-20] MEDS ORDERED: Diphtheria,Pertussis(Acell),Tetanus Vaccine 0.5 ML SDV IM ONE (05:39)
[2017-09-20] MEDS ORDERED: HYDROmorphone 0.5 MG/0.5 ML Syringe IVPUSH ONE (05:58)
[2017-09-20 06:15] VITALS: BP 142/83
[2017-09-20] MEDS ORDERED: LORazepam 2 MG/ML MDV IVPUSH ONE (06:50)
== END 2017-09-20 07:48 ==
LOC: JP.ED 03:11
DX: S12.400A Unspecified displaced fracture of fifth cervical vertebra, initial encounter for closed fracture (principal); S12.600A Unspecified displaced fracture of seventh cervical vertebra, initial encounter for closed fracture; S01.81XA Laceration without foreign body of other part of head, initial encounter; F10.120 Alcohol abuse with intoxication, uncomplicated; Z23 Encounter for immunization; X58.XXXA Exposure to other specified factors, initial encounter
CPT/HCPCS: 12013; 36415; 70450; 70486; 72125; 80048; 85025; 90471; 90715; 96374; 96375; 99285; G0480; J1170; J2060; J7050; 12002